=== PATIENT | male | born 1990 | race Caucasian/White ===

== ENCOUNTER 2024-03-21 17:05 | Emergency (ER) | payer BC, OTHER ==
--- OUTSIDE RECORDS SUMMARY | 2024-03-21 17:15 | XMS REPORT | Continuity of Care Document ---
Author Name Unknown Address [address] [place] [address] [facility] Address [address] [facility] 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 Role Phone Carolyne Garcia MD Primary Care Physician [phone] CAROLYNE GARCIA Attending Clinician Unavailable CAROLYNE GARCIA Attending Clinician Unavailable Carolyne Garcia MD Attending Clinician [phone] CANDIS KEARNEY Attending Clinician Unavailable Candis Kearney MD Attending Clinician [phone] Candis Kearney MD Attending Clinician [phone], Adc Surg Proc Attending Clinician Unavailab JUDITH Adam Attending Clinician Unava ilable BEN CONNOR Attending Clinician Unavailable Doctor Unassigned, Dustin Acres Attending Clinician U navailable SANDRA CABA Attending Clinician Unavailable Werner BOLANOS, October L Attending Clinician Unavailab lindy Poeb, Lane [facility] Main Attending Clinician Unavailabl e Lab, Ang - Db Attending Clinician Unavailable YULIA DO Attending Clinician Unavail able Only, Ang Db Test Attending Clinician Unavailabl Mary Schwarz Attending Clinician [phone] MARY BOWIE Attending Clinician Unavailable DAVID MILLS Attending Clinician Unavailabl rhianna Morris PT, Libra T Attending Clinician Unavail able David Mills MD Attending Clinician [phone] Velasquez FRANCHISE CONSULTANT, Betina K Attending Clinician Unavail able Christiano Mcdonough Attending Clinician Unavail able Lab, Adc Fam Pob I Attending Clinician Unavailab NICKY Moreno Attending Clinician Unavailable Kamla Ling Attending Clinician [phone] Olvin MARIE, Mena Attending Clinician [phone] MENA GUADARRAMA Attending Clinician Unavailable Nazario Carvalho MD Attending Clinician [phone] NAZARIO CARVALHO Attending Clinician Unavailab NOLAN Murrell Attending Clinician Unavailable Jean Pierre Chahal MD Attending Clinician [phone] JEAN PIERRE CHAHAL Attending Clinician Unavail able JEAN PIERRE CHAHAL Attending Clinician Unavail able KNOW, DOES_NOT Admitting Clinician Unavailable MENA GUADARRAMA Admitting Clinician Unavailable JEAN PIERRE CHAHAL Admitting Clinician Unavail able Payers Payer Name Policy Type Policy Number Effective Date Expirati on Date Source [place] [id number] 00:00:00 [employer] PREFERRED GENERIC [id number] 2020 00:00:00 [facility] [facility] [id number] 2017 00:00:00 [facility] [id number] 2018 00:00:00 Problems Condition Name Condition Details Condition Category Status Onset Date Resolution Date Last Treatment Date Treating Clinician Comments Source Contact with and (suspected ) exposure to other hazardous aromatic compounds Contact with and (suspected ) exposure to other hazardous aromatic compounds Disease Active 2022-07 2 00:00: 00 [facility] Anxiety disorder, unspecifie d Anxiety disorder, unspecifie d Disease Active 09-27 00:00: 00 [facility] Cigar smoker Cigar smoker Disease Active 09-27 00:00: 00 [facility] Health examinatio n of defined subpopulat ion Health examinatio n of defined subpopulat ion Disease Active 09-27 00:00: 00 [facility] Psychophys iologic insomnia Psychophys iologic insomnia Disease Active 09-27 00:00: 00 [facility] Chronic bilateral low back pain with sciatica Chronic bilateral low back pain with sciatica Disease Active 2020-07 0-07 00:00: 00 [facility] Decreased range of motion Decreased range of motion Disease Active 2020-07 0-07 00:00: 00 [facility] Decreased strength Decreased strength Disease Active 2020-07 0-07 00:00: 00 [facility] Other examinatio n of ears and hearing Other examinatio n of ears and hearing Disease Active 2020-07 0 00:00: 00 [facility] Migraine Migraine Disease Active 2015-07 0 00:00: 00 [facility] Adjustment disorder with anxiety Adjustment disorder with anxiety Disease Active 2014-07 00:00: 00 [facility] No known active problems No known active problems Disease [facility] Allergies, Adverse Reactions, Alerts Allergy Name Allergy Type Status Severity Reaction(s) Onset Date Inactive Date Treating Clinician Comments Source Naldecon Propensi ty to adverse reaction s Active Other - See comments 11-05 00:00: 00 Patient states "instead of making me sleep, it hypes me up". [facility] NALDECON DRUG Active Other-Cmnt 11-05 00:00: 00 [facility] Family History Family Member Diagnosis Comments Start Date Stop Date Sourc e Natural father Heart [facility] Natural mother Crohns [facility] Natural mother Ulcerative colitis [facility] Social History Social Habit Start Date Stop Date Quantity Comments Source Gender identity [facility] Alcoholic beverage intake 2024-03-12 00:00:00 2024-03-12 00:00:00 .86 /d [facility] History of Social function 2024-01-06 00:00:00 2024-01-06 00:00:00 [facility] Alcohol intake 2023-10-21 00:00:00 2023-10-21 00:00:00 .86 /d [facility] Exposure to SARS-CoV-2 (event) 2022-09-17 00:00:00 2022-09-27 15:28:00 Not sure [facility] History SDOH Alcohol Frequency 2022-09-26 00:00:00 2022-09-26 00:00:00 2 [facility] History SDOH Alcohol Std Drinks 2022-09-26 00:00:00 2022-09-26 00:00:00 1 [facility] SDOH Alcohol Binge 2022-09-26 00:00:00 2022-09-26 00:00:00 1 [facility] SDOH Social Connections Phone 2022-09-26 00:00:00 2022-09-26 00:00:00 5 [facility] SDOH Social Connections Get Together 2022-09-26 00:00:00 2022-09-26 00:00:00 5 [facility] SDOH Social Connections Congregational 2022-09-26 00:00:00 2022-09-26 00:00:00 1 [facility] SDOH Social Connections Membership 2022-09-26 00:00:00 2022-09-26 00:00:00 98 [facility] SDOH Social Connections Meetings 2022-09-26 00:00:00 2022-09-26 00:00:00 98 [facility] SDOH Social Connections Living 2022-09-26 00:00:00 2022-09-26 00:00:00 3 [facility] SDOH Physical Activity DPW 2022-09-26 00:00:00 2022-09-26 00:00:00 5 [facility] SDOH Physical Activity MPS 2022-09-26 00:00:00 2022-09-26 00:00:00 7 [facility] History SDOH Stress 2022-09-26 00:00:00 2022-09-26 00:00:00 2 [facility] SDOH Financial 2022-09-26 00:00:00 2022-09-26 00:00:00 5 [facility] SDOH Food Worry 2022-09-26 00:00:00 2022-09-26 00:00:00 1 [facility] SDOH Food Scarcity 2022-09-26 00:00:00 2022-09-26 00:00:00 1 [facility] History SDOH Transport Med 2022-09-26 00:00:00 2022-09-26 00:00:00 2 [facility] History SDOH Transport Non-Med 2022-09-26 00:00:00 2022-09-26 00:00:00 2 [facility] History SDOH Housing Unable to Pay 2022-09-26 00:00:00 2022-09-26 00:00:00 1 [facility] History SDOH Housing Places Lived 2022-09-26 00:00:00 2022-09-26 00:00:00 1 [facility] History SDOH Housing Homeless Last Year 2022-09-26 00:00:00 2022-09-26 00:00:00 2 [facility] Tobacco use and exposure 2022-04-30 00:00:00 2022-04-30 00:00:00 Smokeless tobacco non-user [facility] Alcohol Comment 2022-04-30 00:00:00 2022-04-30 00:00:00 6 beers on the weekends [facility] Tobacco Comment 2022-04-30 00:00:00 2022-04-30 00:00:00 Cigar once a year [facility] Sex assigned at 1990 00:00:00 1990 00:00:00 [facility] Smoking Status Start Date Stop Date Source Never smoked tobacco [facility] Unknown if ever smoked [facility] Medications Ordered Medication Name Filled Medication Name Start Date Stop Date Current Medication? Ordering Clinician Indication Dosage Frequency Signature (SIG) Comments Components Source phentermine 37.5 mg tablet 03-12 00:00: 00 Yes [id number] 37.5mg Take 1 tablet by mouth daily with breakfast. [facility] topiramate 50 mg tablet 03-09 00:00: 00 03-12 00:00 :00 No [id number] 50mg Take 1 tablet by mouth every morning. [facility] doxycycline hyclate 100 mg capsule 02-08 00:00: 00 02-16 04:59 :00 Yes [id number] 100mg Take 1 capsule by mouth every 12 (twelve) hours for 7 days. [facility] SUMAtriptan 50 mg tablet 17 00:00: 00 Yes [id number] 50mg Take 1 tablet by mouth as needed for Migraine (may repeat dose in 2 hours if HARTMANN persists, do not take more than 2 in a day). [facility] topiramate 50 mg tablet 17 00:00: 00 03-05 00:00 :00 No [id number] 50mg Take 1 tablet by mouth every morning. [facility] SERTraline (ZOLOFT) 100 mg tablet 01-05 00:00: 00 Yes [id number] 200mg Take 2 tablets by mouth in the morning. [facility] traZODone 50 mg tablet 01-05 00:00: 00 Yes [id number] 50mg Take 1 tablet by mouth at bedtime as needed for Insomnia. [facility] SERTraline (ZOLOFT) 100 mg tablet 4-05 00:00: 00 01-05 00:00 :00 No [id number] 150mg Take 1.5 tablets by mouth in the morning. [facility] traZODone 50 mg tablet 2-23 00:00: 00 01-05 00:00 :00 No [id number] 50mg Take 1 tablet by mouth at bedtime as needed for Insomnia. [facility] SERTraline (ZOLOFT) 100 mg tablet 2-23 00:00: 00 10-20 00:00 :00 No [id number] 100mg Take 1 tablet by mouth in the morning. [facility] SERTraline 50 mg tablet 1-22 00:00: 00 09-09 00:00 :00 No [id number] Take 1/2 tablet by mouth daily. After 7 days if tolerating medication well take 1 tablets by mouth daily. [facility] SERTraline (ZOLOFT) 25 mg tablet 1-19 00:00: 00 08-08 00:00 :00 No [id number] Take 1 tablet by mouth daily. After 7 days if tolerating medication well take 2 tablets by mouth daily. [facility] phentermine 37.5 mg tablet 2022-07 2-18 13:17: 36 03-12 00:00 :00 No 37.5mg Take 1 tablet by mouth daily with breakfast. [facility] phentermine 37.5 mg tablet 2022-07 1- 00:00: 00 06-23 00:00 :00 No [id number] 37.5mg Take 1 tablet by mouth daily with breakfast. [facility] phentermine 37.5 mg tablet 02-17 00:00: 00 Yes [id number] 37.5mg Take 1 tablet by mouth daily with breakfast. [facility] topiramate 50 mg tablet 02-15 00:00: 00 01-31 00:00 :00 No [id number] 50mg Take 1 tablet by mouth every morning. [facility] SUMAtriptan 50 mg tablet 02-15 00:00: 00 01-31 00:00 :00 No [id number] 50mg Take 1 tablet by mouth as needed for Migraine (may repeat dose in 2 hours if HARTMANN persists, do not take more than 2 in a day). [facility] liraglutide , weight loss, (SAXENDA) 3 mg/0.5 mL (18 mg/3 mL) PnIj 02-15 00:00: 00 02-17 00:00 :00 No [id number] inject 0.6 mg under the skin daily for 7 days, THEN 1.2 mg daily for 7 days, THEN 1.8 mg daily for 7 days, THEN 2.4 mg daily for 7 days, THEN 3 mg daily for 40 days. [facility] topiramate 25 mg tablet 7- 00:00: 00 02-15 00:00 :00 No [id number] 25mg Take 1 tablet by mouth in the morning. May increase to two tablets a day after 1 week [facility] topiramate 25 mg tablet 2023-0 6-19 00:00: 00 01-26 00:00 :00 No [id number] 25mg Take 1 tablet by mouth in the morning. May increase to two tablets a day after 1 week [facility] topiramate 25 mg tablet 3-13 00:00: 00 12-31 00:00 :00 No [id number] 25mg Take 1 tablet by mouth in the morning. May increase to two tablets a day after 1 week [facility] phentermine 37.5 mg capsule 2021-07 0-14 00:00: 00 09-27 00:00 :00 No [id number] 37.5mg Take 1 capsule by mouth every morning. [facility] methylPREDN ISolone acetate (DEPO-MEDRO L) injection 80 mg 08-21 15:30: 00 08-21 14:45 :00 No [id number] 80mg [facility] triamcinolo ne acetonide (KENALOG) injection 40 mg 08-21 15:30: 08-21 14:46 :00 No [id number] 40mg [facility] No known medications 08-21 09:26: 00 No [facility] gabapentin 300 mg capsule 08-21 00:00: 00 09-20 05:59 :00 No [id number] 300mg Take 1 capsule by mouth 3 (three) times daily for 30 days. [facility] cyclobenzap rine 10 mg tablet 08-21 00:00: 08-29 05:59 :00 No [id number] 10mg Take 1 tablet by mouth 3 (three) times daily for 7 days. [facility] cyclobenzap rine 5 mg tablet 11-05 00:00: 08-21 00:00 :00 No [id number] 5mg Take 1 tablet by mouth 3 (three) times daily. [facility] traMADOL (ULTRAM) 50 mg tablet 11-05 00:00: 08-21 00:00 :00 No [id number] 50mg Take 1 tablet by mouth every 6 (six) hours as needed for Pain (scale 4-6). [facility] No known medications No [facility] No known medications No [facility] No known medications No Un [facility] No known medications No [facility] No known medications No [facility] No known medications No [facility] No known medications No [facility] No known medications No Un [facility] No known medications No [facility] No known medications No Un ret[facility] it[facility] No known medications No Un ret[facility] it[facility] Immunizations Ordered Immunization Name Filled Immunization Name Date Status Comments Source SARS-COV-2 COVID-19 MODERNA 12+ YRS VACCINE 2020-09-16 00:00:00 Completed [facility] SARS-COV-2 COVID-19 MODERNA 12+ YRS VACCINE 2020-09-16 00:00:00 Completed [facility] SARS-COV-2 COVID-19 MODERNA 12+ YRS VACCINE 2020-09-16 00:00:00 Completed [facility] SARS-COV-2 COVID-19 MODERNA 12+ YRS VACCINE 2020-09-16 00:00:00 Completed [facility] SARS-COV-2 COVID-19 MODERNA 12+ YRS VACCINE 2020-09-16 00:00:00 Completed [facility] SARS-COV-2 COVID-19 MODERNA VACCINE 2020-09-16 00:00:00 Completed [facility] SARS-COV-2 COVID-19 MODERNA VACCINE 2020-09-16 00:00:00 Completed [facility] SARS-COV-2 COVID-19 MODERNA VACCINE 2020-09-16 00:00:00 Completed [facility] SARS-COV-2 COVID-19 MODERNA VACCINE 2020-09-16 00:00:00 Completed [facility] SARS-COV-2 COVID-19 MODERNA VACCINE 2020-09-16 00:00:00 Completed [facility] SARS-COV-2 COVID-19 MODERNA VACCINE 2020-09-16 00:00:00 Completed [facility] SARS-COV-2 COVID-19 MODERNA VACCINE 2020-09-16 00:00:00 Completed [facility] SARS-COV-2 COVID-19 MODERNA VACCINE 2020-09-16 00:00:00 Completed [facility] SARS-COV-2 COVID-19 MODERNA 12+ YRS VACCINE 2020-09-16 00:00:00 Completed [facility] SARS-COV-2 COVID-19 MODERNA 12+ YRS VACCINE 2020-09-16 00:00:00 Completed [facility] SARS-COV-2 COVID-19 MODERNA 12+ YRS VACCINE 2020-09-16 00:00:00 Completed [facility] SARS-COV-2 COVID-19 MODERNA 12+ YRS VACCINE 2020-09-16 00:00:00 Completed [facility] SARS-COV-2 COVID-19 MODERNA 12+ YRS VACCINE 2020-09-16 00:00:00 Completed [facility] SARS-COV-2 COVID-19 MODERNA 12+ YRS VACCINE 2020-09-16 00:00:00 Completed [facility] SARS-COV-2 COVID-19 MODERNA 12+ YRS VACCINE 2020-09-16 00:00:00 Completed [facility] SARS-COV-2 COVID-19 MODERNA 12+ YRS VACCINE 2020-09-16 00:00:00 Completed [facility] SARS-COV-2 COVID-19 MODERNA 12+ YRS VACCINE 2020-09-16 00:00:00 Completed [facility] SARS-COV-2 COVID-19 MODERNA 12+ YRS VACCINE 2020-09-16 00:00:00 Completed [facility] SARS-COV-2 COVID-19 MODERNA 12+ YRS VACCINE 2020-09-16 00:00:00 Completed [facility] SARS-COV-2 COVID-19 MODERNA 12+ YRS VACCINE 2020-09-16 00:00:00 Completed [facility] SARS-COV-2 COVID-19 MODERNA 12+ YRS VACCINE 2020-09-16 00:00:00 Completed [facility] SARS-COV-2 COVID-19 MODERNA 12+ YRS VACCINE 2020-09-16 00:00:00 Completed [facility] SARS-COV-2 COVID-19 MODERNA 12+ YRS VACCINE 2020-09-16 00:00:00 Completed [facility] SARS-COV-2 COVID-19 MODERNA 12+ YRS VACCINE 2020-09-16 00:00:00 Completed [facility] SARS-COV-2 COVID-19 MODERNA 12+ YRS VACCINE 2020-09-16 00:00:00 Completed [facility] SARS-COV-2 COVID-19 MODERNA 12+ YRS VACCINE 2020-09-16 00:00:00 Completed [facility] SARS-COV-2 COVID-19 MODERNA 12+ YRS VACCINE 2020-09-16 00:00:00 Completed [facility] SARS-COV-2 COVID-19 MODERNA 12+ YRS VACCINE 2020-09-16 00:00:00 Completed [facility] SARS-COV-2 COVID-19 MODERNA 12+ YRS VACCINE 2020-09-16 00:00:00 Completed [facility] SARS-COV-2 COVID-19 MODERNA 12+ YRS VACCINE 2020-09-16 00:00:00 Completed [facility] SARS-COV-2 COVID-19 MODERNA 12+ YRS VACCINE 2020-08-19 00:00:00 Completed [facility] SARS-COV-2 COVID-19 MODERNA 12+ YRS VACCINE 2020-08-19 00:00:00 Completed [facility] SARS-COV-2 COVID-19 MODERNA 12+ YRS VACCINE 2020-08-19 00:00:00 Completed [facility] SARS-COV-2 COVID-19 MODERNA 12+ YRS VACCINE 2020-08-19 00:00:00 Completed [facility] SARS-COV-2 COVID-19 MODERNA 12+ YRS VACCINE 2020-08-19 00:00:00 Completed [facility] SARS-COV-2 COVID-19 MODERNA VACCINE 2020-08-19 00:00:00 Completed [facility] SARS-COV-2 COVID-19 MODERNA VACCINE 2020-08-19 00:00:00 Completed [facility] SARS-COV-2 COVID-19 MODERNA VACCINE 2020-08-19 00:00:00 Completed [facility] SARS-COV-2 COVID-19 MODERNA VACCINE 2020-08-19 00:00:00 Completed [facility] SARS-COV-2 COVID-19 MODERNA VACCINE 2020-08-19 00:00:00 Completed [facility] SARS-COV-2 COVID-19 MODERNA VACCINE 2020-08-19 00:00:00 Completed [facility] SARS-COV-2 COVID-19 MODERNA VACCINE 2020-08-19 00:00:00 Completed [facility] SARS-COV-2 COVID-19 MODERNA VACCINE 2020-08-19 00:00:00 Completed [facility] SARS-COV-2 COVID-19 MODERNA 12+ YRS VACCINE 2020-08-19 00:00:00 Completed [facility] SARS-COV-2 COVID-19 MODERNA 12+ YRS VACCINE 2020-08-19 00:00:00 Completed [facility] SARS-COV-2 COVID-19 MODERNA 12+ YRS VACCINE 2020-08-19 00:00:00 Completed [facility] SARS-COV-2 COVID-19 MODERNA 12+ YRS VACCINE 2020-08-19 00:00:00 Completed [facility] SARS-COV-2 COVID-19 MODERNA 12+ YRS VACCINE 2020-08-19 00:00:00 Completed [facility] SARS-COV-2 COVID-19 MODERNA 12+ YRS VACCINE 2020-08-19 00:00:00 Completed [facility] SARS-COV-2 COVID-19 MODERNA 12+ YRS VACCINE 2020-08-19 00:00:00 Completed [facility] SARS-COV-2 COVID-19 MODERNA 12+ YRS VACCINE 2020-08-19 00:00:00 Completed [facility] SARS-COV-2 COVID-19 MODERNA 12+ YRS VACCINE 2020-08-19 00:00:00 Completed [facility] SARS-COV-2 COVID-19 MODERNA 12+ YRS VACCINE 2020-08-19 00:00:00 Completed [facility] SARS-COV-2 COVID-19 MODERNA 12+ YRS VACCINE 2020-08-19 00:00:00 Completed [facility] SARS-COV-2 COVID-19 MODERNA 12+ YRS VACCINE 2020-08-19 00:00:00 Completed [facility] SARS-COV-2 COVID-19 MODERNA 12+ YRS VACCINE 2020-08-19 00:00:00 Completed [facility] SARS-COV-2 COVID-19 MODERNA 12+ YRS VACCINE 2020-08-19 00:00:00 Completed [facility] SARS-COV-2 COVID-19 MODERNA 12+ YRS VACCINE 2020-08-19 00:00:00 Completed [facility] SARS-COV-2 COVID-19 MODERNA 12+ YRS VACCINE 2020-08-19 00:00:00 Completed [facility] SARS-COV-2 COVID-19 MODERNA 12+ YRS VACCINE 2020-08-19 00:00:00 Completed [facility] SARS-COV-2 COVID-19 MODERNA 12+ YRS VACCINE 2020-08-19 00:00:00 Completed [facility] SARS-COV-2 COVID-19 MODERNA 12+ YRS VACCINE 2020-08-19 00:00:00 Completed [facility] SARS-COV-2 COVID-19 MODERNA 12+ YRS VACCINE 2020-08-19 00:00:00 Completed [facility] SARS-COV-2 COVID-19 MODERNA 12+ YRS VACCINE 2020-08-19 00:00:00 Completed [facility] SARS-COV-2 COVID-19 MODERNA 12+ YRS VACCINE 2020-08-19 00:00:00 Completed [facility] Influenza Virus Vaccine Recomb Quad IM, Preserv and ABX Free 64 2017-04-27 00:00:00 Completed [facility] Anthrax Vaccine 2017-04-27 00:00:00 Completed [facility] Influenza Virus Vaccine Recomb Quad IM, Preserv and ABX Free 1864 2017-04-27 00:00:00 Completed [facility] Anthrax Vaccine 2017-04-27 00:00:00 Completed [facility] Influenza Virus Vaccine Recomb Quad IM, Preserv and ABX Free 18-64 2017-04-27 00:00:00 Completed [facility] Anthrax Vaccine 2017-04-27 00:00:00 Completed [facility] Influenza Virus Vaccine Recomb Quad IM, Preserv and ABX Free 18-64 YRS 2017-04-27 00:00:00 Completed [facility] Anthrax Vaccine 2017-04-27 00:00:00 Completed [facility] Influenza Virus Vaccine Recomb Quad IM, Preserv and ABX Free 18-64 YRS 2017-04-27 00:00:00 Completed [facility] Anthrax Vaccine 2017-04-27 00:00:00 Completed [facility] Influenza Virus Vaccine Recomb Quad IM, Preserv and ABX Free 18-64 YRS 2017-04-27 00:00:00 Completed [facility] Anthrax Vaccine 2017-04-27 00:00:00 Completed [facility] Influenza Virus Vaccine Recomb Quad IM, Preserv and ABX Free 18-64 YRS 2017-04-27 00:00:00 Completed [facility] Anthrax Vaccine 2017-04-27 00:00:00 Completed [facility] Influenza Virus Vaccine Recomb Quad IM, Preserv and ABX Free 18-64 YRS 2017-04-27 00:00:00 Completed [facility] Anthrax Vaccine 2017-04-27 00:00:00 Completed [facility] Influenza Virus Vaccine Recomb Quad IM, Preserv and ABX Free 18-64 YRS 2017-04-27 00:00:00 Completed [facility] Anthrax Vaccine 2017-04-27 00:00:00 Completed [facility] Influenza Virus Vaccine Recomb Quad IM, Preserv and ABX Free 18-64 YRS 2017-04-27 00:00:00 Completed [facility] Anthrax Vaccine 2017-04-27 00:00:00 Completed [facility] Influenza Virus Vaccine Recomb Quad IM, Preserv and ABX Free 18-64 YRS 2017-04-27 00:00:00 Completed [facility] Anthrax Vaccine 2017-04-27 00:00:00 Completed [facility] Influenza Virus Vaccine Recomb Quad IM, Preserv and ABX Free 18-64 YRS 2017-04-27 00:00:00 Completed [facility] Anthrax Vaccine 2017-04-27 00:00:00 Completed [facility] Influenza Virus Vaccine Recomb Quad IM, Preserv and ABX Free 18-64 YRS 2017-04-27 00:00:00 Completed [facility] Anthrax Vaccine 2017-04-27 00:00:00 Completed [facility] Influenza Virus Vaccine Recomb Quad IM, Preserv and ABX Free 18-64 YRS 2017-04-27 00:00:00 Completed [facility] Anthrax Vaccine 2017-04-27 00:00:00 Completed [facility] Influenza Virus Vaccine Recomb Quad IM, Preserv and ABX Free 18-64 YRS 2017-04-27 00:00:00 Completed [facility] Anthrax Vaccine 2017-04-27 00:00:00 Completed [facility] Influenza Virus Vaccine Recomb Quad IM, Preserv and ABX Free 18-64 YRS 2017-04-27 00:00:00 Completed [facility] Anthrax Vaccine 2017-04-27 00:00:00 Completed [facility] Influenza Virus Vaccine Recomb Quad IM, Preserv and ABX Free 18-64 YRS 2017-04-27 00:00:00 Completed [facility] Anthrax Vaccine 2017-04-27 00:00:00 Completed [facility] Influenza Virus Vaccine Recomb Quad IM, Preserv and ABX Free 18-64 YRS 2017-04-27 00:00:00 Completed [facility] Anthrax Vaccine 2017-04-27 00:00:00 Completed [facility] Influenza Virus Vaccine Recomb Quad IM, Preserv and ABX Free 18-64 YRS 2017-04-27 00:00:00 Completed [facility] Anthrax Vaccine 2017-04-27 00:00:00 Completed [facility] Influenza Virus Vaccine Recomb Quad IM, Preserv and ABX Free 18-64 YRS 2017-04-27 00:00:00 Completed [facility] Anthrax Vaccine 2017-04-27 00:00:00 Completed [facility] Typhoid Vaccine, Vi Capsular Polysaccharide, IM 2016-10-19 00:00:00 Completed [facility] Anthrax Vaccine 2016-10-19 00:00:00 Completed [facility] Typhoid Vaccine, Vi Capsular Polysaccharide, IM 2016-10-19 00:00:00 Completed [facility] Anthrax Vaccine 2016-10-19 00:00:00 Completed [facility] Typhoid Vaccine, Vi Capsular Polysaccharide, IM 2016-10-19 00:00:00 Completed [facility] Anthrax Vaccine 2016-10-19 00:00:00 Completed [facility] Typhoid Vaccine, Vi Capsular Polysaccharide, IM 2016-10-19 00:00:00 Completed [facility] Anthrax Vaccine 2016-10-19 00:00:00 Completed [facility] Typhoid Vaccine, Vi Capsular Polysaccharide, IM 2016-10-19 00:00:00 Completed [facility] Anthrax Vaccine 2016-10-19 00:00:00 Completed [facility] Typhoid Vaccine, Vi Capsular Polysaccharide, IM 2016-10-19 00:00:00 Completed [facility] Anthrax Vaccine 2016-10-19 00:00:00 Completed [facility] Typhoid Vaccine, Vi Capsular Polysaccharide, IM 2016-10-19 00:00:00 Completed [facility] Anthrax Vaccine 2016-10-19 00:00:00 Completed [facility] Typhoid Vaccine, Vi Capsular Polysaccharide, IM 2016-10-19 00:00:00 Completed [facility] Anthrax Vaccine 2016-10-19 00:00:00 Completed [facility] Typhoid Vaccine, Vi Capsular Polysaccharide, IM 2016-10-19 00:00:00 Completed [facility] Anthrax Vaccine 2016-10-19 00:00:00 Completed [facility] Typhoid Vaccine, Vi Capsular Polysaccharide, IM 2016-10-19 00:00:00 Completed [facility] Anthrax Vaccine 2016-10-19 00:00:00 Completed [facility] Typhoid Vaccine, Vi Capsular Polysaccharide, IM 2016-10-19 00:00:00 Completed [facility] Anthrax Vaccine 2016-10-19 00:00:00 Completed [facility] Typhoid Vaccine, Vi Capsular Polysaccharide, IM 2016-10-19 00:00:00 Completed [facility] Anthrax Vaccine 2016-10-19 00:00:00 Completed [facility] Typhoid Vaccine, Vi Capsular Polysaccharide, IM 2016-10-19 00:00:00 Completed [facility] Anthrax Vaccine 2016-10-19 00:00:00 Completed [facility] Typhoid Vaccine, Vi Capsular Polysaccharide, IM 2016-10-19 00:00:00 Completed [facility] Anthrax Vaccine 2016-10-19 00:00:00 Completed [facility] Typhoid Vaccine, Vi Capsular Polysaccharide, IM 2016-10-19 00:00:00 Completed [facility] Anthrax Vaccine 2016-10-19 00:00:00 Completed [facility] Typhoid Vaccine, Vi Capsular Polysaccharide, IM 2016-10-19 00:00:00 Completed [facility] Anthrax Vaccine 2016-10-19 00:00:00 Completed [facility] Typhoid Vaccine, Vi Capsular Polysaccharide, IM 2016-10-19 00:00:00 Completed [facility] Anthrax Vaccine 2016-10-19 00:00:00 Completed [facility] Typhoid Vaccine, Vi Capsular Polysaccharide, IM 2016-10-19 00:00:00 Completed [facility] Anthrax Vaccine 2016-10-19 00:00:00 Completed [facility] Typhoid Vaccine, Vi Capsular Polysaccharide, IM 2016-10-19 00:00:00 Completed [facility] Anthrax Vaccine 2016-10-19 00:00:00 Completed [facility] Typhoid Vaccine, Vi Capsular Polysaccharide, IM 2016-10-19 00:00:00 Completed [facility] Anthrax Vaccine 2016-10-19 00:00:00 Completed [facility] Flu Trivalent 2016-04-29 00:00:00 Completed [facility] Flu Trivalent 2016-04-29 00:00:00 Completed [facility] Flu Trivalent 2016-04-29 00:00:00 Completed [facility] Flu Trivalent 2016-04-29 00:00:00 Completed [facility] Flu Trivalent 2016-04-29 00:00:00 Completed [facility] Flu Trivalent 2016-04-29 00:00:00 Completed [facility] Flu Trivalent 2016-04-29 00:00:00 Completed [facility] Flu Trivalent 2016-04-29 00:00:00 Completed [facility] Flu Trivalent 2016-04-29 00:00:00 Completed [facility] Flu Trivalent 2016-04-29 00:00:00 Completed [facility] Flu Trivalent 2016-04-29 00:00:00 Completed [facility] Flu Trivalent 2016-04-29 00:00:00 Completed [facility] Flu Trivalent 2016-04-29 00:00:00 Completed [facility] Flu Trivalent 2016-04-29 00:00:00 Completed [facility] Flu Trivalent 2016-04-29 00:00:00 Completed [facility] Flu Trivalent 2016-04-29 00:00:00 Completed [facility] Flu Trivalent 2016-04-29 00:00:00 Completed [facility] Flu Trivalent 2016-04-29 00:00:00 Completed [facility] Flu Trivalent 2016-04-29 00:00:00 Completed [facility] Flu Trivalent 2016-04-29 00:00:00 Completed [facility] Influenza Virus Vaccine Quad Nasal 2015-04-07 00:00:00 Completed [facility] Influenza Virus Vaccine Quad Nasal 2015-04-07 00:00:00 Completed [facility] Influenza Virus Vaccine Quad Nasal 2015-04-07 00:00:00 Completed [facility] Influenza Virus Vaccine Quad Nasal 2015-04-07 00:00:00 Completed [facility] Influenza Virus Vaccine Quad Nasal 2015-04-07 00:00:00 Completed [facility] Influenza Virus Vaccine Quad Nasal 2015-04-07 00:00:00 Completed [facility] Influenza Virus Vaccine Quad Nasal 2015-04-07 00:00:00 Completed [facility] Influenza Virus Vaccine Quad Nasal 2015-04-07 00:00:00 Completed [facility] Influenza Virus Vaccine Quad Nasal 2015-04-07 00:00:00 Completed [facility] Influenza Virus Vaccine Quad Nasal 2015-04-07 00:00:00 Completed [facility] Influenza Virus Vaccine Quad Nasal 2015-04-07 00:00:00 Completed [facility] Influenza Virus Vaccine Quad Nasal 2015-04-07 00:00:00 Completed [facility] Influenza Virus Vaccine Quad Nasal 2015-04-07 00:00:00 Completed [facility] Influenza Virus Vaccine Quad Nasal 2015-04-07 00:00:00 Completed [facility] Influenza Virus Vaccine Quad Nasal 2015-04-07 00:00:00 Completed [facility] Influenza Virus Vaccine Quad Nasal 2015-04-07 00:00:00 Completed [facility] Influenza Virus Vaccine Quad Nasal 2015-04-07 00:00:00 Completed [facility] Influenza Virus Vaccine Quad Nasal 2015-04-07 00:00:00 Completed [facility] Influenza Virus Vaccine Quad Nasal 2015-04-07 00:00:00 Completed [facility] Influenza Virus Vaccine Quad Nasal 2015-04-07 00:00:00 Completed [facility] Anthrax Vaccine 2014-10-23 00:00:00 Completed [facility] Anthrax Vaccine 2014-10-23 00:00:00 Completed [facility] Anthrax Vaccine 2014-10-23 00:00:00 Completed [facility] Anthrax Vaccine 2014-10-23 00:00:00 Completed [facility] Anthrax Vaccine 2014-10-23 00:00:00 Completed [facility] Anthrax Vaccine 2014-10-23 00:00:00 Completed [facility] Anthrax Vaccine 2014-10-23 00:00:00 Completed [facility] Anthrax Vaccine 2014-10-23 00:00:00 Completed [facility] Anthrax Vaccine 2014-10-23 00:00:00 Completed [facility] Anthrax Vaccine 2014-10-23 00:00:00 Completed [facility] Anthrax Vaccine 2014-10-23 00:00:00 Completed [facility] Anthrax Vaccine 2014-10-23 00:00:00 Completed [facility] Anthrax Vaccine 2014-10-23 00:00:00 Completed [facility] Anthrax Vaccine 2014-10-23 00:00:00 Completed [facility] Anthrax Vaccine 2014-10-23 00:00:00 Completed [facility] Anthrax Vaccine 2014-10-23 00:00:00 Completed [facility] Anthrax Vaccine 2014-10-23 00:00:00 Completed [facility] Anthrax Vaccine 2014-10-23 00:00:00 Completed [facility] Anthrax Vaccine 2014-10-23 00:00:00 Completed [facility] Anthrax Vaccine 2014-10-23 00:00:00 Completed [facility] Influenza Virus Vaccine (3+ yrs) 2014-05-01 00:00:00 Completed [facility] Influenza Virus Vaccine (3+ yrs) 2014-05-01 00:00:00 Completed [facility] Influenza Virus Vaccine (3+ yrs) 2014-05-01 00:00:00 Completed [facility] Influenza Virus Vaccine (3+ yrs) 2014-05-01 00:00:00 Completed [facility] Influenza Virus Vaccine (3+ yrs) 2014-05-01 00:00:00 Completed [facility] Influenza Virus Vaccine (3+ yrs) 2014-05-01 00:00:00 Completed [facility] Influenza Virus Vaccine (3+ yrs) 2014-05-01 00:00:00 Completed [facility] Influenza Virus Vaccine (3+ yrs) 2014-05-01 00:00:00 Completed [facility] Influenza Virus Vaccine (3+ yrs) 2014-05-01 00:00:00 Completed [facility] Influenza Virus Vaccine (3+ yrs) 2014-05-01 00:00:00 Completed [facility] Influenza Virus Vaccine (3+ yrs) 2014-05-01 00:00:00 Completed [facility] Influenza Virus Vaccine (3+ yrs) 2014-05-01 00:00:00 Completed [facility] Influenza Virus Vaccine (3+ yrs) 2014-05-01 00:00:00 Completed [facility] Influenza Virus Vaccine (3+ yrs) 2014-05-01 00:00:00 Completed [facility] Influenza Virus Vaccine (3+ yrs) 2014-05-01 00:00:00 Completed [facility] Influenza Virus Vaccine (3+ yrs) 2014-05-01 00:00:00 Completed [facility] Influenza Virus Vaccine (3+ yrs) 2014-05-01 00:00:00 Completed [facility] Influenza Virus Vaccine (3+ yrs) 2014-05-01 00:00:00 Completed [facility] Influenza Virus Vaccine (3+ yrs) 2014-05-01 00:00:00 Completed [facility] Influenza Virus Vaccine (3+ yrs) 2014-05-01 00:00:00 Completed [facility] Anthrax Vaccine 2013-11-05 00:00:00 Completed [facility] Anthrax Vaccine 2013-11-05 00:00:00 Completed [facility] Anthrax Vaccine 2013-11-05 00:00:00 Completed [facility] Anthrax Vaccine 2013-11-05 00:00:00 Completed [facility] Anthrax Vaccine 2013-11-05 00:00:00 Completed [facility] Anthrax Vaccine 2013-11-05 00:00:00 Completed [facility] Anthrax Vaccine 2013-11-05 00:00:00 Completed [facility] Anthrax Vaccine 2013-11-05 00:00:00 Completed [facility] Anthrax Vaccine 2013-11-05 00:00:00 Completed [facility] Anthrax Vaccine 2013-11-05 00:00:00 Completed [facility] Anthrax Vaccine 2013-11-05 00:00:00 Completed [facility] Anthrax Vaccine 2013-11-05 00:00:00 Completed [facility] Anthrax Vaccine 2013-11-05 00:00:00 Completed [facility] Anthrax Vaccine 2013-11-05 00:00:00 Completed [facility] Anthrax Vaccine 2013-11-05 00:00:00 Completed [facility] Anthrax Vaccine 2013-11-05 00:00:00 Completed [facility] Anthrax Vaccine 2013-11-05 00:00:00 Completed [facility] Anthrax Vaccine 2013-11-05 00:00:00 Completed [facility] Anthrax Vaccine 2013-11-05 00:00:00 Completed [facility] Anthrax Vaccine 2013-11-05 00:00:00 Completed [facility] Typhoid Vaccine, Vi Capsular Polysaccharide, IM 2013-09-26 00:00:00 Completed [facility] Anthrax Vaccine 2013-09-26 00:00:00 Completed [facility] Smallpox 2013-09-26 00:00:00 Completed [facility] Typhoid Vaccine, Vi Capsular Polysaccharide, IM 2013-09-26 00:00:00 Completed [facility] Anthrax Vaccine 2013-09-26 00:00:00 Completed [facility] Smallpox 2013-09-26 00:00:00 Completed [facility] Typhoid Vaccine, Vi Capsular Polysaccharide, IM 2013-09-26 00:00:00 Completed [facility] Anthrax Vaccine 2013-09-26 00:00:00 Completed [facility] Smallpox 2013-09-26 00:00:00 Completed [facility] Typhoid Vaccine, Vi Capsular Polysaccharide, IM 2013-09-26 00:00:00 Completed [facility] Anthrax Vaccine 2013-09-26 00:00:00 Completed [facility] Smallpox 2013-09-26 00:00:00 Completed [facility] Typhoid Vaccine, Vi Capsular Polysaccharide, IM 2013-09-26 00:00:00 Completed [facility] Anthrax Vaccine 2013-09-26 00:00:00 Completed [facility] Smallpox 2013-09-26 00:00:00 Completed [facility] Typhoid Vaccine, Vi Capsular Polysaccharide, IM 2013-09-26 00:00:00 Completed [facility] Anthrax Vaccine 2013-09-26 00:00:00 Completed [facility] Smallpox 2013-09-26 00:00:00 Completed [facility] Typhoid Vaccine, Vi Capsular Polysaccharide, IM 2013-09-26 00:00:00 Completed [facility] Anthrax Vaccine 2013-09-26 00:00:00 Completed [facility] Smallpox 2013-09-26 00:00:00 Completed [facility] Typhoid Vaccine, Vi Capsular Polysaccharide, IM 2013-09-26 00:00:00 Completed [facility] Anthrax Vaccine 2013-09-26 00:00:00 Completed [facility] Smallpox 2013-09-26 00:00:00 Completed [facility] Typhoid Vaccine, Vi Capsular Polysaccharide, IM 2013-09-26 00:00:00 Completed [facility] Anthrax Vaccine 2013-09-26 00:00:00 Completed [facility] Smallpox 2013-09-26 00:00:00 Completed [facility] Typhoid Vaccine, Vi Capsular Polysaccharide, IM 2013-09-26 00:00:00 Completed [facility] Anthrax Vaccine 2013-09-26 00:00:00 Completed [facility] Smallpox 2013-09-26 00:00:00 Completed [facility] Typhoid Vaccine, Vi Capsular Polysaccharide, IM 2013-09-26 00:00:00 Completed [facility] Anthrax Vaccine 2013-09-26 00:00:00 Completed [facility] Smallpox 2013-09-26 00:00:00 Completed [facility] Typhoid Vaccine, Vi Capsular Polysaccharide, IM 2013-09-26 00:00:00 Completed [facility] Anthrax Vaccine 2013-09-26 00:00:00 Completed [facility] Smallpox 2013-09-26 00:00:00 Completed [facility] Typhoid Vaccine, Vi Capsular Polysaccharide, IM 2013-09-26 00:00:00 Completed [facility] Anthrax Vaccine 2013-09-26 00:00:00 Completed [facility] Smallpox 2013-09-26 00:00:00 Completed [facility] Typhoid Vaccine, Vi Capsular Polysaccharide, IM 2013-09-26 00:00:00 Completed [facility] Anthrax Vaccine 2013-09-26 00:00:00 Completed [facility] Smallpox 2013-09-26 00:00:00 Completed [facility] Typhoid Vaccine, Vi Capsular Polysaccharide, IM 2013-09-26 00:00:00 Completed [facility] Anthrax Vaccine 2013-09-26 00:00:00 Completed [facility] Smallpox 2013-09-26 00:00:00 Completed [facility] Typhoid Vaccine, Vi Capsular Polysaccharide, IM 2013-09-26 00:00:00 Completed [facility] Anthrax Vaccine 2013-09-26 00:00:00 Completed [facility] Smallpox 2013-09-26 00:00:00 Completed [facility] Typhoid Vaccine, Vi Capsular Polysaccharide, IM 2013-09-26 00:00:00 Completed [facility] Anthrax Vaccine 2013-09-26 00:00:00 Completed [facility] Smallpox 2013-09-26 00:00:00 Completed [facility] Typhoid Vaccine, Vi Capsular Polysaccharide, IM 2013-09-26 00:00:00 Completed [facility] Anthrax Vaccine 2013-09-26 00:00:00 Completed [facility] Smallpox 2013-09-26 00:00:00 Completed [facility] Typhoid Vaccine, Vi Capsular Polysaccharide, IM 2013-09-26 00:00:00 Completed [facility] Anthrax Vaccine 2013-09-26 00:00:00 Completed [facility] Smallpox 2013-09-26 00:00:00 Completed [facility] Typhoid Vaccine, Vi Capsular Polysaccharide, IM 2013-09-26 00:00:00 Completed [facility] Anthrax Vaccine 2013-09-26 00:00:00 Completed [facility] Smallpox 2013-09-26 00:00:00 Completed [facility] Twinrix (hep a/hep b) 2013-04-26 00:00:00 Completed [facility] Influenza Virus Vaccine Quad Nasal 2013-04-26 00:00:00 Completed [facility] Twinrix (hep a/hep b) 2013-04-26 00:00:00 Completed [facility] Influenza Virus Vaccine Quad Nasal 2013-04-26 00:00:00 Completed [facility] Twinrix (hep a/hep b) 2013-04-26 00:00:00 Completed [facility] Influenza Virus Vaccine Quad Nasal 2013-04-26 00:00:00 Completed [facility] Twinrix (hep a/hep b) 2013-04-26 00:00:00 Completed [facility] Influenza Virus Vaccine Quad Nasal 2013-04-26 00:00:00 Completed [facility] Twinrix (hep a/hep b) 2013-04-26 00:00:00 Completed [facility] Influenza Virus Vaccine Quad Nasal 2013-04-26 00:00:00 Completed [facility] Twinrix (hep a/hep b) 2013-04-26 00:00:00 Completed [facility] Influenza Virus Vaccine Quad Nasal 2013-04-26 00:00:00 Completed [facility] Twinrix (hep a/hep b) 2013-04-26 00:00:00 Completed [facility] Influenza Virus Vaccine Quad Nasal 2013-04-26 00:00:00 Completed [facility] Twinrix (hep a/hep b) 2013-04-26 00:00:00 Completed [facility] Influenza Virus Vaccine Quad Nasal 2013-04-26 00:00:00 Completed [facility] Twinrix (hep a/hep b) 2013-04-26 00:00:00 Completed [facility] Influenza Virus Vaccine Quad Nasal 2013-04-26 00:00:00 Completed [facility] Twinrix (hep a/hep b) 2013-04-26 00:00:00 Completed [facility] Influenza Virus Vaccine Quad Nasal 2013-04-26 00:00:00 Completed [facility] Twinrix (hep a/hep b) 2013-04-26 00:00:00 Completed [facility] Influenza Virus Vaccine Quad Nasal 2013-04-26 00:00:00 Completed [facility] Twinrix (hep a/hep b) 2013-04-26 00:00:00 Completed [facility] Influenza Virus Vaccine Quad Nasal 2013-04-26 00:00:00 Completed [facility] Twinrix (hep a/hep b) 2013-04-26 00:00:00 Completed [facility] Influenza Virus Vaccine Quad Nasal 2013-04-26 00:00:00 Completed [facility] Twinrix (hep a/hep b) 2013-04-26 00:00:00 Completed [facility] Influenza Virus Vaccine Quad Nasal 2013-04-26 00:00:00 Completed [facility] Twinrix (hep a/hep b) 2013-04-26 00:00:00 Completed [facility] Influenza Virus Vaccine Quad Nasal 2013-04-26 00:00:00 Completed [facility] Twinrix (hep a/hep b) 2013-04-26 00:00:00 Completed [facility] Influenza Virus Vaccine Quad Nasal 2013-04-26 00:00:00 Completed [facility] Twinrix (hep a/hep b) 2013-04-26 00:00:00 Completed [facility] Influenza Virus Vaccine Quad Nasal 2013-04-26 00:00:00 Completed [facility] Twinrix (hep a/hep b) 2013-04-26 00:00:00 Completed [facility] Influenza Virus Vaccine Quad Nasal 2013-04-26 00:00:00 Completed [facility] Twinrix (hep a/hep b) 2013-04-26 00:00:00 Completed [facility] Influenza Virus Vaccine Quad Nasal 2013-04-26 00:00:00 Completed [facility] Twinrix (hep a/hep b) 2013-04-26 00:00:00 Completed [facility] Influenza Virus Vaccine Quad Nasal 2013-04-26 00:00:00 Completed [facility] PPD (TB) 2013-04-10 00:00:00 Completed [facility] PPD (TB) 2013-04-10 00:00:00 Completed [facility] PPD (TB) 2013-04-10 00:00:00 Completed [facility] PPD (TB) 2013-04-10 00:00:00 Completed [facility] PPD (TB) 2013-04-10 00:00:00 Completed [facility] PPD (TB) 2013-04-10 00:00:00 Completed [facility] PPD (TB) 2013-04-10 00:00:00 Completed [facility] PPD (TB) 2013-04-10 00:00:00 Completed [facility] PPD (TB) 2013-04-10 00:00:00 Completed [facility] PPD (TB) 2013-04-10 00:00:00 Completed [facility] PPD (TB) 2013-04-10 00:00:00 Completed [facility] PPD (TB) 2013-04-10 00:00:00 Completed [facility] PPD (TB) 2013-04-10 00:00:00 Completed [facility] PPD (TB) 2013-04-10 00:00:00 Completed [facility] PPD (TB) 2013-04-10 00:00:00 Completed [facility] PPD (TB) 2013-04-10 00:00:00 Completed [facility] PPD (TB) 2013-04-10 00:00:00 Completed [facility] PPD (TB) 2013-04-10 00:00:00 Completed [facility] PPD (TB) 2013-04-10 00:00:00 Completed [facility] PPD (TB) 2013-04-10 00:00:00 Completed [facility] DTAP 2012-12-28 00:00:00 Completed [facility] DTAP 2012-12-28 00:00:00 Completed [facility] DTAP 2012-12-28 00:00:00 Completed [facility] DTAP 2012-12-28 00:00:00 Completed [facility] DTAP 2012-12-28 00:00:00 Completed [facility] DTAP 2012-12-28 00:00:00 Completed [facility] DTAP 2012-12-28 00:00:00 Completed [facility] DTAP 2012-12-28 00:00:00 Completed [facility] DTAP 2012-12-28 00:00:00 Completed [facility] DTAP 2012-12-28 00:00:00 Completed [facility] DTAP 2012-12-28 00:00:00 Completed [facility] DTAP 2012-12-28 00:00:00 Completed [facility] DTAP 2012-12-28 00:00:00 Completed [facility] DTAP 2012-12-28 00:00:00 Completed [facility] DTAP 2012-12-28 00:00:00 Completed [facility] DTAP 2012-12-28 00:00:00 Completed [facility] DTAP 2012-12-28 00:00:00 Completed [facility] DTAP 2012-12-28 00:00:00 Completed [facility] DTAP 2012-12-28 00:00:00 Completed [facility] DTAP 2012-12-28 00:00:00 Completed [facility] DTAP 2012-12-28 00:00:00 Completed [facility] DTAP 2012-12-28 00:00:00 Completed [facility] DTAP 2012-12-28 00:00:00 Completed [facility] DTAP 2012-12-28 00:00:00 Completed [facility] DTAP 2012-12-28 00:00:00 Completed [facility] DTAP 2012-12-28 00:00:00 Completed [facility] DTAP 2012-12-28 00:00:00 Completed [facility] Twinrix (hep a/hep b) 2012-11-14 00:00:00 Completed [facility] Twinrix (hep a/hep b) 2012-11-14 00:00:00 Completed [facility] Twinrix (hep a/hep b) 2012-11-14 00:00:00 Completed [facility] Twinrix (hep a/hep b) 2012-11-14 00:00:00 Completed [facility] Twinrix (hep a/hep b) 2012-11-14 00:00:00 Completed [facility] Twinrix (hep a/hep b) 2012-11-14 00:00:00 Completed [facility] Twinrix (hep a/hep b) 2012-11-14 00:00:00 Completed [facility] Twinrix (hep a/hep b) 2012-11-14 00:00:00 Completed [facility] Twinrix (hep a/hep b) 2012-11-14 00:00:00 Completed [facility] Twinrix (hep a/hep b) 2012-11-14 00:00:00 Completed [facility] Twinrix (hep a/hep b) 2012-11-14 00:00:00 Completed [facility] Twinrix (hep a/hep b) 2012-11-14 00:00:00 Completed [facility] Twinrix (hep a/hep b) 2012-11-14 00:00:00 Completed [facility] Twinrix (hep a/hep b) 2012-11-14 00:00:00 Completed [facility] Twinrix (hep a/hep b) 2012-11-14 00:00:00 Completed [facility] Twinrix (hep a/hep b) 2012-11-14 00:00:00 Completed [facility] Twinrix (hep a/hep b) 2012-11-14 00:00:00 Completed [facility] Twinrix (hep a/hep b) 2012-11-14 00:00:00 Completed [facility] Twinrix (hep a/hep b) 2012-11-14 00:00:00 Completed [facility] Twinrix (hep a/hep b) 2012-11-14 00:00:00 Completed [facility] Adenovirus, NOS 2012-09-13 00:00:00 Completed [facility] Twinrix (hep a/hep b) 2012-09-13 00:00:00 Completed [facility] Influenza Virus Vaccine Nasal 2012-09-13 00:00:00 Completed [facility] Meningococcal Polysaccharide (groups A, C, Y and W-135) conjugate vaccine (MCV4P) 2012-09-13 00:00:00 Completed [facility] IPV 2012-09-13 00:00:00 Completed [facility] TDAP 2012-09-13 00:00:00 Completed [facility] Adenovirus, NOS 2012-09-13 00:00:00 Completed [facility] Twinrix (hep a/hep b) 2012-09-13 00:00:00 Completed [facility] Influenza Virus Vaccine Nasal 2012-09-13 00:00:00 Completed [facility] Meningococcal Polysaccharide (groups A, C, Y and W-135) conjugate vaccine (MCV4P) 2012-09-13 00:00:00 Completed [facility] IPV 2012-09-13 00:00:00 Completed [facility] TDAP 2012-09-13 00:00:00 Completed [facility] Adenovirus, NOS 2012-09-13 00:00:00 Completed [facility] Twinrix (hep a/hep b) 2012-09-13 00:00:00 Completed [facility] Influenza Virus Vaccine Nasal 2012-09-13 00:00:00 Completed [facility] Meningococcal Polysaccharide (groups A, C, Y and W-135) conjugate vaccine (MCV4P) 2012-09-13 00:00:00 Completed [facility] IPV 2012-09-13 00:00:00 Completed [facility] TDAP 2012-09-13 00:00:00 Completed [facility] Adenovirus, NOS 2012-09-13 00:00:00 Completed [facility] Twinrix (hep a/hep b) 2012-09-13 00:00:00 Completed [facility] Influenza Virus Vaccine Nasal 2012-09-13 00:00:00 Completed [facility] Meningococcal Polysaccharide (groups A, C, Y and W-135) conjugate vaccine (MCV4P) 2012-09-13 00:00:00 Completed [facility] IPV 2012-09-13 00:00:00 Completed [facility] TDAP 2012-09-13 00:00:00 Completed [facility] Adenovirus, NOS 2012-09-13 00:00:00 Completed [facility] Twinrix (hep a/hep b) 2012-09-13 00:00:00 Completed [facility] Influenza Virus Vaccine Nasal 2012-09-13 00:00:00 Completed [facility] Meningococcal Polysaccharide (groups A, C, Y and W-135) conjugate vaccine (MCV4P) 2012-09-13 00:00:00 Completed [facility] IPV 2012-09-13 00:00:00 Completed [facility] TDAP 2012-09-13 00:00:00 Completed [facility] Adenovirus, NOS 2012-09-13 00:00:00 Completed [facility] Twinrix (hep a/hep b) 2012-09-13 00:00:00 Completed [facility] Influenza Virus Vaccine Nasal 2012-09-13 00:00:00 Completed [facility] Meningococcal Polysaccharide (groups A, C, Y and W-135) conjugate vaccine (MCV4P) 2012-09-13 00:00:00 Completed [facility] IPV 2012-09-13 00:00:00 Completed [facility] TDAP 2012-09-13 00:00:00 Completed [facility] Adenovirus, NOS 2012-09-13 00:00:00 Completed [facility] Twinrix (hep a/hep b) 2012-09-13 00:00:00 Completed [facility] Influenza Virus Vaccine Nasal 2012-09-13 00:00:00 Completed [facility] Meningococcal Polysaccharide (groups A, C, Y and W-135) conjugate vaccine (MCV4P) 2012-09-13 00:00:00 Completed [facility] IPV 2012-09-13 00:00:00 Completed [facility] TDAP 2012-09-13 00:00:00 Completed [facility] Adenovirus, NOS 2012-09-13 00:00:00 Completed [facility] Twinrix (hep a/hep b) 2012-09-13 00:00:00 Completed [facility] Influenza Virus Vaccine Nasal 2012-09-13 00:00:00 Completed [facility] Meningococcal Polysaccharide (groups A, C, Y and W-135) conjugate vaccine (MCV4P) 2012-09-13 00:00:00 Completed [facility] IPV 2012-09-13 00:00:00 Completed [facility] TDAP 2012-09-13 00:00:00 Completed [facility] Adenovirus, NOS 2012-09-13 00:00:00 Completed [facility] Twinrix (hep a/hep b) 2012-09-13 00:00:00 Completed [facility] Influenza Virus Vaccine Nasal 2012-09-13 00:00:00 Completed [facility] Meningococcal Polysaccharide (groups A, C, Y and W-135) conjugate vaccine (MCV4P) 2012-09-13 00:00:00 Completed [facility] IPV 2012-09-13 00:00:00 Completed [facility] TDAP 2012-09-13 00:00:00 Completed [facility] Adenovirus, NOS 2012-09-13 00:00:00 Completed [facility] Twinrix (hep a/hep b) 2012-09-13 00:00:00 Completed [facility] Influenza Virus Vaccine Nasal 2012-09-13 00:00:00 Completed [facility] Meningococcal Polysaccharide (groups A, C, Y and W-135) conjugate vaccine (MCV4P) 2012-09-13 00:00:00 Completed [facility] IPV 2012-09-13 00:00:00 Completed [facility] TDAP 2012-09-13 00:00:00 Completed [facility] Adenovirus, NOS 2012-09-13 00:00:00 Completed [facility] Twinrix (hep a/hep b) 2012-09-13 00:00:00 Completed [facility] Influenza Virus Vaccine Nasal 2012-09-13 00:00:00 Completed [facility] Meningococcal Polysaccharide (groups A, C, Y and W-135) conjugate vaccine (MCV4P) 2012-09-13 00:00:00 Completed [facility] IPV 2012-09-13 00:00:00 Completed [facility] TDAP 2012-09-13 00:00:00 Completed [facility] Adenovirus, NOS 2012-09-13 00:00:00 Completed [facility] Twinrix (hep a/hep b) 2012-09-13 00:00:00 Completed [facility] Influenza Virus Vaccine Nasal 2012-09-13 00:00:00 Completed [facility] Meningococcal Polysaccharide (groups A, C, Y and W-135) conjugate vaccine (MCV4P) 2012-09-13 00:00:00 Completed [facility] IPV 2012-09-13 00:00:00 Completed [facility] TDAP 2012-09-13 00:00:00 Completed [facility] Adenovirus, NOS 2012-09-13 00:00:00 Completed [facility] Twinrix (hep a/hep b) 2012-09-13 00:00:00 Completed [facility] Influenza Virus Vaccine Nasal 2012-09-13 00:00:00 Completed [facility] Meningococcal Polysaccharide (groups A, C, Y and W-135) conjugate vaccine (MCV4P) 2012-09-13 00:00:00 Completed [facility] IPV 2012-09-13 00:00:00 Completed [facility] TDAP 2012-09-13 00:00:00 Completed [facility] Adenovirus, NOS 2012-09-13 00:00:00 Completed [facility] Twinrix (hep a/hep b) 2012-09-13 00:00:00 Completed [facility] Influenza Virus Vaccine Nasal 2012-09-13 00:00:00 Completed [facility] Meningococcal Polysaccharide (groups A, C, Y and W-135) conjugate vaccine (MCV4P) 2012-09-13 00:00:00 Completed [facility] IPV 2012-09-13 00:00:00 Completed [facility] TDAP 2012-09-13 00:00:00 Completed [facility] Adenovirus, NOS 2012-09-13 00:00:00 Completed [facility] Twinrix (hep a/hep b) 2012-09-13 00:00:00 Completed [facility] Influenza Virus Vaccine Nasal 2012-09-13 00:00:00 Completed [facility] Meningococcal Polysaccharide (groups A, C, Y and W-135) conjugate vaccine (MCV4P) 2012-09-13 00:00:00 Completed [facility] IPV 2012-09-13 00:00:00 Completed [facility] TDAP 2012-09-13 00:00:00 Completed [facility] Adenovirus, NOS 2012-09-13 00:00:00 Completed [facility] Twinrix (hep a/hep b) 2012-09-13 00:00:00 Completed [facility] Influenza Virus Vaccine Nasal 2012-09-13 00:00:00 Completed [facility] Meningococcal Polysaccharide (groups A, C, Y and W-135) conjugate vaccine (MCV4P) 2012-09-13 00:00:00 Completed [facility] IPV 2012-09-13 00:00:00 Completed [facility] TDAP 2012-09-13 00:00:00 Completed [facility] Adenovirus, NOS 2012-09-13 00:00:00 Completed [facility] Twinrix (hep a/hep b) 2012-09-13 00:00:00 Completed [facility] Influenza Virus Vaccine Nasal 2012-09-13 00:00:00 Completed [facility] Meningococcal Polysaccharide (groups A, C, Y and W-135) conjugate vaccine (MCV4P) 2012-09-13 00:00:00 Completed [facility] IPV 2012-09-13 00:00:00 Completed [facility] TDAP 2012-09-13 00:00:00 Completed [facility] Adenovirus, NOS 2012-09-13 00:00:00 Completed [facility] Twinrix (hep a/hep b) 2012-09-13 00:00:00 Completed [facility] Influenza Virus Vaccine Nasal 2012-09-13 00:00:00 Completed [facility] Meningococcal Polysaccharide (groups A, C, Y and W-135) conjugate vaccine (MCV4P) 2012-09-13 00:00:00 Completed [facility] IPV 2012-09-13 00:00:00 Completed [facility] TDAP 2012-09-13 00:00:00 Completed [facility] Adenovirus, NOS 2012-09-13 00:00:00 Completed [facility] Twinrix (hep a/hep b) 2012-09-13 00:00:00 Completed [facility] Influenza Virus Vaccine Nasal 2012-09-13 00:00:00 Completed [facility] Meningococcal Polysaccharide (groups A, C, Y and W-135) conjugate vaccine (MCV4P) 2012-09-13 00:00:00 Completed [facility] IPV 2012-09-13 00:00:00 Completed [facility] TDAP 2012-09-13 00:00:00 Completed [facility] Adenovirus, NOS 2012-09-13 00:00:00 Completed [facility] Twinrix (hep a/hep b) 2012-09-13 00:00:00 Completed [facility] Influenza Virus Vaccine Nasal 2012-09-13 00:00:00 Completed [facility] Meningococcal Polysaccharide (groups A, C, Y and W-135) conjugate vaccine (MCV4P) 2012-09-13 00:00:00 Completed [facility] IPV 2012-09-13 00:00:00 Completed [facility] TDAP 2012-09-13 00:00:00 Completed [facility] SARS-COV-2 COVID-19 MODERNA 12+ YRS VACCINE Unknown Completed [facility] SARS-COV-2 COVID-19 MODERNA 12+ YRS VACCINE Unknown Completed [facility] DTAP Unknown Completed [facility] Typhoid Vaccine, Vi Capsular Polysaccharide, IM Unknown Completed [facility] Typhoid Vaccine, Vi Capsular Polysaccharide, IM Unknown Completed [facility] Influenza Virus Vaccine Recomb Quad IM, Preserv and ABX Free 18-64 YRS Unknown Completed [facility] Adenovirus, NOS Unknown Completed [facility] Anthrax Vaccine Unknown Completed [facility] Anthrax Vaccine Unknown Completed [facility] Anthrax Vaccine Unknown Completed [facility] Anthrax Vaccine Unknown Completed [facility] Anthrax Vaccine Unknown Completed [facility] Twinrix (hep a/hep b) Unknown Completed [facility] Twinrix (hep a/hep b) Unknown Completed [facility] Twinrix (hep a/hep b) Unknown Completed [facility] Influenza Virus Vaccine Nasal Unknown Completed [facility] Influenza Virus Vaccine Quad Nasal (Flumist) Unknown Completed [facility] Influenza Virus Vaccine Quad Nasal (Flumist) Unknown Completed [facility] Flu Trivalent Unknown [facility] Influenza Virus Vaccine (3+ yrs) Unknown Completed [facility] Meningococcal Polysaccharide (groups A, C, Y and W-135) conjugate vaccine (MCV4P) Unknown Completed [facility] IPV Unknown Completed [facility] TDAP Unknown Completed [facility] PPD (TB) Unknown Completed [facility] Smallpox Unknown Completed [facility] SARS-COV-2 COVID-19 MODERNA 12+ YRS VACCINE Unknown Completed [facility] SARS-COV-2 COVID-19 MODERNA 12+ YRS VACCINE Unknown Completed [facility] DTAP Unknown Completed [facility] Typhoid Vaccine, Vi Capsular Polysaccharide, IM Unknown Completed [facility] Typhoid Vaccine, Vi Capsular Polysaccharide, IM Unknown Completed [facility] Influenza Virus Vaccine Recomb Quad IM, Preserv and ABX Free 18-64 YRS Unknown Completed [facility] Adenovirus, NOS Unknown [facility]ine [facility] Com[facility] Anthrax Vaccine Unknown Completed [facility] Twinrix (hep a/hep b) Unknown Completed [facility] Twinrix (hep a/hep b) Unknown Completed [facility] Twinrix (hep a/hep b) Unknown Completed [facility] Influenza Virus Vaccine Nasal Unknown Completed [facility] Influenza Virus Vaccine Quad Nasal (Flumist) Unknown Completed [facility] Influenza Virus Vaccine Quad Nasal (Flumist) Unknown Completed [facility] Flu Trivalent Unknown Completed [facility] Influenza Virus Vaccine (3+ yrs) Unknown Completed [facility] Meningococcal Polysaccharide (groups A, C, Y and W-135) conjugate vaccine (MCV4P) Unknown Completed [facility] IPV Unknown Completed [facility] TDAP Unknown Completed [facility] PPD (TB) Unknown Completed [facility] Smallpox Unknown Completed [facility] SARS-COV-2 COVID-19 MODERNA 12+ YRS VACCINE Unknown Completed [facility] SARS-COV-2 COVID-19 MODERNA 12+ YRS VACCINE Unknown Completed [facility] DTAP Unknown Completed [facility] Typhoid Vaccine, Vi Capsular Polysaccharide, IM Unknown Completed [facility] Typhoid Vaccine, Vi Capsular Polysaccharide, IM Unknown Completed [facility] Influenza Virus Vaccine Recomb Quad IM, Preserv and ABX Free 18-64 YRS Unknown [facility] [facility] Adenovirus, NOS Unknown [facility] Vaccine Unknown Com[facility] Anthrax Vacc[facility] Unknown Completed [facility] Anthrax Vaccine Unknown Completed [facility] Anthrax Vaccine Unknown Completed [facility] Twinrix (hep a/hep b) Unknown Completed [facility] Twinrix (hep a/hep b) Unknown Completed [facility] Twinrix (hep a/hep b) Unknown Completed [facility] Influenza Virus Vaccine Nasal Unknown Completed [facility] Influenza Virus Vaccine Quad Nasal (Flumist) Unknown Completed [facility] Influenza Virus Vaccine Quad Nasal (Flumist) Unknown Completed [facility] Flu Trivalent Unknown Completed [facility] Influenza Virus Vaccine (3+ yrs) Unknown Completed [facility] Meningococcal Polysaccharide (groups A, C, Y and W-135) conjugate vaccine (MCV4P) Unknown Completed [facility] IPV Unknown Completed [facility] TDAP Unknown Completed [facility] PPD (TB) Unknown Completed [facility] Smallpox Unknown Completed [facility] SARS-COV-2 COVID-19 MODERNA 12+ YRS VACCINE Unknown Completed [facility] SARS-COV-2 COVID-19 MODERNA 12+ YRS VACCINE Unknown Completed [facility] DTAP Unknown Completed [facility] Typhoid Vaccine, Vi Capsular Polysaccharide, IM Unknown Completed [facility] Typhoid Vaccine, Vi Capsular Polysaccharide, IM Unknown Completed [facility] Influenza Virus Vaccine Recomb Quad IM, Preserv and ABX Free 18-64 YRS Unknown Completed [facility] Adenovirus, NOS Unknown [facility] Com[facility] Anthrax Vacc[facility] Unknown [facility] Vaccine Unknown Completed [facility] Anthrax Vacc[facility] Unknown [facility]ine [facility] Completed [facility] Twinrix (hep a/hep b) Unknown Completed [facility] Twinrix (hep a/hep b) Unknown Completed [facility] Twinrix (hep a/hep b) Unknown Completed [facility] Influenza Virus Vaccine Nasal Unknown Completed [facility] Influenza Virus Vaccine Quad Nasal (Flumist) Unknown Completed [facility] Influenza Virus Vaccine Quad Nasal (Flumist) Unknown Completed [facility]alent [facility]ine (3+ yrs) Unknown Completed [facility] Meningococcal Polysaccharide (groups A, C, Y and W-135) conjugate vaccine (MCV4P) Unknown Completed [facility] IPV Unknown Completed [facility] TDAP Unknown Completed [facility] PPD (TB) Unknown Completed [facility] Smallpox Unknown Completed [facility] SARS-COV-2 COVID-19 MODERNA 12+ YRS VACCINE Unknown Completed [facility] SARS-COV-2 COVID-19 MODERNA 12+ YRS VACCINE Unknown Completed [facility] DTAP Unknown Completed [facility] Typhoid Vaccine, Vi Capsular Polysaccharide, IM Unknown Completed [facility] Typhoid Vaccine, Vi Capsular Polysaccharide, IM Unknown Completed [facility] Influenza Virus Vaccine Recomb Quad IM, Preserv and ABX Free 18-64 YRS Unknown Completed [facility] Adenovirus, NOS Unknown Completed [facility] Anthrax Vaccine Unknown Completed [facility] Anthrax Vaccine Unknown Completed [facility] Anthrax Vaccine Unknown Completed [facility] Anthrax Vaccine Unknown Completed [facility] Anthrax Vaccine Unknown Completed [facility] Twinrix (hep a/hep b) Unknown Completed [facility] Twinrix (hep a/hep b) Unknown Completed [facility] Twinrix (hep a/hep b) Unknown Completed [facility] Influenza Virus Vaccine Nasal Unknown Completed [facility] Influenza Virus Vaccine Quad Nasal (Flumist) Unknown Completed [facility] Influenza Virus Vaccine Quad Nasal (Flumist) Unknown Completed [facility] Flu Trivalent [facility] Vaccine (3+ yrs) Unknown Completed [facility] Meningococcal Polysaccharide (groups A, C, Y and W-135) conjugate vaccine (MCV4P) Unknown Completed [facility] IPV Unknown Completed [facility] TDAP Unknown Completed [facility] PPD (TB) Unknown Completed [facility] Smallpox Unknown Completed [facility] SARS-COV-2 COVID-19 MODERNA 12+ YRS VACCINE Unknown Completed [facility] SARS-COV-2 COVID-19 MODERNA 12+ YRS VACCINE Unknown Completed [facility] DTAP Unknown Completed [facility] Typhoid Vaccine, Vi Capsular Polysaccharide, IM Unknown Completed [facility] Typhoid Vaccine, Vi Capsular Polysaccharide, IM Unknown Completed [facility] Influenza Virus Vaccine Recomb Quad IM, Preserv and ABX Free 18-64 YRS Unknown Completed [facility] Adenovirus, NOS Unknown Completed [facility] Anthrax Vaccine Unknown Completed [facility] Anthrax Vaccine Unknown Completed [facility] Anthrax Vaccine Unknown Completed [facility] Anthrax Vaccine Unknown Completed [facility] Anthrax Vaccine Unknown Completed [facility] Twinrix (hep a/hep b) Unknown Completed [facility] Twinrix (hep a/hep b) Unknown Completed [facility] Twinrix (hep a/hep b) Unknown Completed [facility] Influenza Virus Vaccine Nasal Unknown Completed [facility] Influenza Virus Vaccine Quad Nasal (Flumist) Unknown Completed [facility] Influenza Virus Vaccine Quad Nasal (Flumist) Unknown Completed [facility] Flu Trivalent Unknown [facility] Vaccine (3+ yrs) Unknown Completed [facility] Meningococcal Polysaccharide (groups A, C, Y and W-135) conjugate vaccine (MCV4P) Unknown Completed [facility] IPV Unknown Completed [facility] TDAP Unknown Completed [facility] PPD (TB) Unknown Completed [facility] Smallpox Unknown Completed [facility] SARS-COV-2 COVID-19 MODERNA 12+ YRS VACCINE Unknown Completed [facility] SARS-COV-2 COVID-19 MODERNA 12+ YRS VACCINE Unknown Completed [facility] DTAP Unknown Completed [facility] Typhoid Vaccine, Vi Capsular Polysaccharide, IM Unknown Completed [facility] Typhoid Vaccine, Vi Capsular Polysaccharide, IM Unknown Completed [facility] Influenza Virus Vaccine Recomb Quad IM, Preserv and ABX Free 18-64 YRS Unknown Completed [facility] Adenovirus, NOS Unknown Completed [facility] Anthrax Vaccine Unknown Completed [facility] Anthrax Vaccine Unknown Completed [facility] Anthrax Vaccine Unknown Completed [facility] Anthrax Vaccine Unknown Completed [facility] Anthrax Vaccine Unknown Completed [facility] Twinrix (hep a/hep b) Unknown Completed [facility] Twinrix (hep a/hep b) Unknown Completed [facility] Twinrix (hep a/hep b) Unknown Completed [facility] Influenza Virus Vaccine Nasal Unknown Completed [facility] Influenza Virus Vaccine Quad Nasal (Flumist) Unknown Completed [facility] Influenza Virus Vaccine Quad Nasal (Flumist) Unknown Completed [facility] Flu Trivalent Unknown [facility] Vaccine (3+ yrs) Unknown Completed [facility] Meningococcal Polysaccharide (groups A, C, Y and W-135) conjugate vaccine (MCV4P) Unknown Completed [facility] IPV Unknown Completed [facility] TDAP Unknown Completed [facility] PPD (TB) Unknown Completed [facility] Smallpox Unknown Completed [facility] Varicella (varivax)(chicken pox) Unknown Completed [facility] SARS-COV-2 COVID-19 MODERNA 12+ YRS VACCINE Unknown Completed [facility] SARS-COV-2 COVID-19 MODERNA 12+ YRS VACCINE Unknown Completed [facility] DTAP Unknown Completed [facility] Typhoid Vaccine, Vi Capsular Polysaccharide, IM Unknown Completed [facility] Typhoid Vaccine, Vi Capsular Polysaccharide, IM Unknown Completed [facility] Influenza Virus Vaccine Recomb Quad IM, Preserv and ABX Free 18-64 YRS Unknown Completed [facility] Adenovirus, NOS Unknown Completed [facility] Anthrax Vaccine Unknown Completed [facility] Anthrax Vaccine Unknown [facility]ine [facility] Vacc[facility]rax Vaccine Unknown Completed [facility] Twinrix (hep a/hep b) Unknown Completed [facility] Twinrix (hep a/hep b) Unknown Completed [facility] Twinrix (hep a/hep b) Unknown Completed [facility] Influenza Virus Vaccine Nasal Unknown Completed [facility] Influenza Virus Vaccine Quad Nasal (Flumist) Unknown Completed [facility] Influenza Virus Vaccine Quad Nasal (Flumist) Unknown Completed [facility] Flu [facility]rivalent [facility]ine (3+ yrs) Unknown Completed [facility] Meningococcal Polysaccharide (groups A, C, Y and W-135) conjugate vaccine (MCV4P) Unknown Completed [facility] IPV Unknown Completed [facility] TDAP Unknown Completed [facility] PPD (TB) Unknown Completed [facility] Smallpox Unknown Completed [facility] Varicella (varivax)(chicken pox) Unknown Completed [facility] SARS-COV-2 COVID-19 MODERNA 12+ YRS VACCINE Unknown Completed [facility] SARS-COV-2 COVID-19 MODERNA 12+ YRS VACCINE Unknown Completed [facility] DTAP Unknown Completed [facility] Typhoid Vaccine, Vi Capsular Polysaccharide, IM Unknown Completed [facility] Typhoid Vaccine, Vi Capsular Polysaccharide, IM Unknown Completed [facility] Influenza Virus Vaccine Recomb Quad IM, Preserv and ABX Free 18-64 YRS Unknown Completed [facility] Adenovirus, NOS Unknown Completed [facility] Anthrax Vaccine Unknown [facility]ine [facility] Vacc[facility] Unknown Completed [facility] Anthrax Vaccine Unknown Completed [facility] Twinrix (hep a/hep b) Unknown Completed [facility] Twinrix (hep a/hep b) Unknown Completed [facility] Twinrix (hep a/hep b) Unknown Completed [facility] Influenza Virus Vaccine Nasal Unknown Completed [facility] Influenza Virus Vaccine Quad Nasal (Flumist) Unknown Completed [facility] Influenza Virus Vaccine Quad Nasal (Flumist) Unknown Completed [facility] Flu [facility]rivalent [facility] Vaccine (3+ yrs) Unknown Completed [facility] Meningococcal Polysaccharide (groups A, C, Y and W-135) conjugate vaccine (MCV4P) Unknown Completed [facility] IPV Unknown Completed [facility] TDAP Unknown Completed [facility] PPD (TB) Unknown Completed [facility] Smallpox Unknown Completed [facility] Varicella (varivax)(chicken pox) Unknown Completed [facility] SARS-COV-2 COVID-19 MODERNA 12+ YRS VACCINE Unknown Completed [facility] SARS-COV-2 COVID-19 MODERNA 12+ YRS VACCINE Unknown Completed [facility] DTAP Unknown Completed [facility] Typhoid Vaccine, Vi Capsular Polysaccharide, IM Unknown Completed [facility] Typhoid Vaccine, Vi Capsular Polysaccharide, IM Unknown Completed [facility] Influenza Virus Vaccine Recomb Quad IM, Preserv and ABX Free 18-64 YRS Unknown Completed [facility] Adenovirus, NOS Unknown Completed [facility] Anthrax Vaccine Unknown Completed [facility] Anthrax Vaccine Unknown Completed [facility] Anthrax Vaccine Unknown Completed [facility] Anthrax Vaccine Unknown Completed [facility] Anthrax Vaccine Unknown Completed [facility] Twinrix (hep a/hep b) Unknown Completed [facility] Twinrix (hep a/hep b) Unknown Completed [facility] Twinrix (hep a/hep b) Unknown Completed [facility] Influenza Virus Vaccine Nasal Unknown Completed [facility] Influenza Virus Vaccine Quad Nasal (Flumist) Unknown Completed [facility] Influenza Virus Vaccine Quad Nasal (Flumist) Unknown Completed [facility] Flu [facility]rivalent [facility] Vaccine (3+ yrs) Unknown Completed [facility] Meningococcal Polysaccharide (groups A, C, Y and W-135) conjugate vaccine (MCV4P) Unknown Completed [facility] IPV Unknown Completed [facility] TDAP Unknown Completed [facility] PPD (TB) Unknown Completed [facility] Smallpox Unknown Completed [facility] Varicella (varivax)(chicken pox) Unknown Completed [facility] SARS-COV-2 COVID-19 MODERNA 12+ YRS VACCINE Unknown Completed [facility] SARS-COV-2 COVID-19 MODERNA 12+ YRS VACCINE Unknown Completed [facility] DTAP Unknown Completed [facility] Typhoid Vaccine, Vi Capsular Polysaccharide, IM Unknown Completed [facility] Typhoid Vaccine, Vi Capsular Polysaccharide, IM Unknown Completed [facility] Influenza Virus Vaccine Recomb Quad IM, Preserv and ABX Free 18-64 YRS Unknown Completed [facility] Adenovirus, NOS Unknown Completed [facility] Anthrax Vaccine Unknown Completed [facility] Anthrax Vaccine Unknown Completed [facility] Anthrax Vaccine Unknown Completed [facility] Anthrax Vaccine Unknown Completed [facility] Anthrax Vaccine Unknown Completed [facility] Twinrix (hep a/hep b) Unknown Completed [facility] Twinrix (hep a/hep b) Unknown Completed [facility] Twinrix (hep a/hep b) Unknown Completed [facility] Influenza Virus Vaccine Nasal Unknown Completed [facility] Influenza Virus Vaccine Quad Nasal (Flumist) Unknown Completed [facility] Influenza Virus Vaccine Quad Nasal (Flumist) Unknown Completed [facility] Flu Trivalent Unknown [facility] Vaccine (3+ yrs) Unknown Completed [facility] Meningococcal Polysaccharide (groups A, C, Y and W-135) conjugate vaccine (MCV4P) Unknown Completed [facility] IPV Unknown Completed [facility] TDAP Unknown Completed [facility] PPD (TB) Unknown Completed [facility] Smallpox Unknown Completed [facility] Varicella (varivax)(chicken pox) Unknown Completed [facility] SARS-COV-2 COVID-19 MODERNA 12+ YRS VACCINE Unknown Completed [facility] SARS-COV-2 COVID-19 MODERNA 12+ YRS VACCINE Unknown Completed [facility] DTAP Unknown Completed [facility] Typhoid Vaccine, Vi Capsular Polysaccharide, IM Unknown Completed [facility] Typhoid Vaccine, Vi Capsular Polysaccharide, IM Unknown Completed [facility] Influenza Virus Vaccine Recomb Quad IM, Preserv and ABX Free 18-64 YRS Unknown Completed [facility] Adenovirus, NOS Unknown Completed [facility] Anthrax Vaccine Unknown Completed [facility] Anthrax Vaccine Unknown Completed [facility] Anthrax Vaccine Unknown Completed [facility] Anthrax Vaccine Unknown Completed [facility] Anthrax Vaccine Unknown Completed [facility] Twinrix (hep a/hep b) Unknown Completed [facility] Twinrix (hep a/hep b) Unknown Completed [facility] Twinrix (hep a/hep b) Unknown Completed [facility] Influenza Virus Vaccine Nasal Unknown Completed [facility] Influenza Virus Vaccine Quad Nasal (Flumist) Unknown Completed [facility] Influenza Virus Vaccine Quad Nasal (Flumist) Unknown Completed [facility] Flu Trivalent [facility] Vaccine (3+ yrs) Unknown Completed [facility] Meningococcal Polysaccharide (groups A, C, Y and W-135) conjugate vaccine (MCV4P) Unknown Completed [facility] IPV Unknown Completed [facility] TDAP Unknown Completed [facility] PPD (TB) Unknown Completed [facility] Smallpox Unknown Completed [facility] Varicella (varivax)(chicken pox) Unknown Completed [facility] SARS-COV-2 COVID-19 MODERNA 12+ YRS VACCINE Unknown Completed [facility] SARS-COV-2 COVID-19 MODERNA 12+ YRS VACCINE Unknown Completed [facility] DTAP Unknown Completed [facility] Typhoid Vaccine, Vi Capsular Polysaccharide, IM Unknown Completed [facility] Typhoid Vaccine, Vi Capsular Polysaccharide, IM Unknown Completed [facility] Influenza Virus Vaccine Recomb Quad IM, Preserv and ABX Free 18-64 YRS Unknown Completed [facility] Adenovirus, NOS Unknown Completed [facility] Anthrax Vaccine Unknown Completed [facility] Anthrax Vaccine Unknown Completed [facility] Anthrax Vaccine Unknown Completed [facility] Anthrax Vaccine Unknown Completed [facility] Anthrax Vaccine Unknown Completed [facility] Twinrix (hep a/hep b) Unknown Completed [facility] Twinrix (hep a/hep b) Unknown Completed [facility] Twinrix (hep a/hep b) Unknown Completed [facility] Influenza Virus Vaccine Nasal Unknown Completed [facility] Influenza Virus Vaccine Quad Nasal (Flumist) Unknown Completed [facility] Influenza Virus Vaccine Quad Nasal (Flumist) Unknown Completed [facility] Flu [facility]rivalent [facility]ine (3+ yrs) Unknown Completed [facility] Meningococcal Polysaccharide (groups A, C, Y and W-135) conjugate vaccine (MCV4P) Unknown Completed [facility] IPV Unknown Completed [facility] TDAP Unknown Completed [facility] PPD (TB) Unknown Completed [facility] Smallpox Unknown Completed [facility] Varicella (varivax)(chicken pox) Unknown Completed [facility] SARS-COV-2 COVID-19 MODERNA 12+ YRS VACCINE Unknown Completed [facility] SARS-COV-2 COVID-19 MODERNA 12+ YRS VACCINE Unknown Completed [facility] DTAP Unknown Completed [facility] Typhoid Vaccine, Vi Capsular Polysaccharide, IM Unknown Completed [facility] Typhoid Vaccine, Vi Capsular Polysaccharide, IM Unknown Completed [facility] Influenza Virus Vaccine Recomb Quad IM, Preserv and ABX Free 18-64 YRS Unknown Completed [facility] Adenovirus, NOS Unknown Completed [facility] Anthrax Vaccine Unknown Com[facility] [facility] Anth[facility] Vaccine Unknown [facility] Anthrax Vaccine Unknown Completed [facility] Anthrax Vaccine Unknown Completed [facility] Anthrax Vaccine Unknown Completed [facility] Twinrix (hep a/hep b) Unknown Completed [facility] Twinrix (hep a/hep b) Unknown Completed [facility] Twinrix (hep a/hep b) Unknown Completed [facility] Influenza Virus Vaccine Nasal Unknown Completed [facility] Influenza Virus Vaccine Quad Nasal (Flumist) Unknown Completed [facility] Influenza Virus Vaccine Quad Nasal (Flumist) Unknown Completed [facility]ine (3+ y[facility] Unknown Completed [facility] Meningococcal Polysaccharide (groups A, C, Y and W-135) conjugate vaccine (MCV4P) Unknown Completed [facility] IPV Unknown Completed [facility] TDAP Unknown Completed [facility] PPD (TB) Unknown Completed [facility] Smallpox Unknown Completed [facility] Varicella (varivax)(chicken pox) Unknown Completed [facility] SARS-COV-2 COVID-19 MODERNA 12+ YRS VACCINE Unknown Completed [facility] SARS-COV-2 COVID-19 MODERNA 12+ YRS VACCINE Unknown Completed [facility] DTAP Unknown Completed [facility] Typhoid Vaccine, Vi Capsular Polysaccharide, IM Unknown Completed [facility] Typhoid Vaccine, Vi Capsular Polysaccharide, IM Unknown Completed [facility] Influenza Virus Vaccine Recomb Quad IM, Preserv and ABX Free 18-64 YRS Unknown Completed [facility] Adenovirus, NOS Unknown Completed [facility] Anthrax Vaccine Unknown Completed [facility] Anthrax Vaccine Unknown Completed [facility] Anthrax Vaccine Unknown Completed [facility] Anthrax Vaccine Unknown Completed [facility] Anthrax Vaccine Unknown Completed [facility] Twinrix (hep a/hep b) Unknown Completed [facility] Twinrix (hep a/hep b) Unknown Completed [facility] Twinrix (hep a/hep b) Unknown Completed [facility] Influenza Virus Vaccine Nasal Unknown Completed [facility] Influenza Virus Vaccine Quad Nasal (Flumist) Unknown Completed [facility] Influenza Virus Vaccine Quad Nasal (Flumist) Unknown Completed [facility] Flu Trivalent Unknown Completed [facility] Influenza Virus Vaccine (3+ yrs) Unknown Completed [facility] Meningococcal Polysaccharide (groups A, C, Y and W-135) conjugate vaccine (MCV4P) Unknown Completed [facility] IPV Unknown Completed [facility] TDAP Unknown Completed [facility] PPD (TB) Unknown Completed [facility] Smallpox Unknown Completed [facility] Varicella (varivax)(chicken pox) Unknown Completed [facility] SARS-COV-2 COVID-19 MODERNA 12+ YRS VACCINE Unknown Completed [facility] SARS-COV-2 COVID-19 MODERNA 12+ YRS VACCINE Unknown Completed [facility] DTAP Unknown Completed [facility] Typhoid Vaccine, Vi Capsular Polysaccharide, IM Unknown Completed [facility] Typhoid Vaccine, Vi Capsular Polysaccharide, IM Unknown Completed [facility] Influenza Virus Vaccine Recomb Quad IM, Preserv and ABX Free 18-64 YRS Unknown Completed [facility] Adenovirus, NOS Unknown Completed [facility] Anthrax Vaccine Unknown Completed [facility] Anthrax Vaccine Unknown Completed [facility] Anthrax Vaccine Unknown Completed [facility] Anthrax Vaccine Unknown Completed [facility] Anthrax Vaccine Unknown Completed [facility] Twinrix (hep a/hep b) Unknown Completed [facility] Twinrix (hep a/hep b) Unknown Completed [facility] Twinrix (hep a/hep b) Unknown Completed [facility] Influenza Virus Vaccine Nasal Unknown Completed [facility] Influenza Virus Vaccine Quad Nasal (Flumist) Unknown Completed [facility] Influenza Virus Vaccine Quad Nasal (Flumist) Unknown Completed [facility] Flu Trivalent [facility] Vaccine (3+ yrs) Unknown Completed [facility] Meningococcal Polysaccharide (groups A, C, Y and W-135) conjugate vaccine (MCV4P) Unknown Completed [facility] IPV Unknown Completed [facility] TDAP Unknown Completed [facility] PPD (TB) Unknown Completed [facility] Smallpox Unknown Completed [facility] Varicella (varivax)(chicken pox) Unknown Completed [facility] SARS-COV-2 COVID-19 MODERNA 12+ YRS VACCINE Unknown Completed [facility] SARS-COV-2 COVID-19 MODERNA 12+ YRS VACCINE Unknown Completed [facility] DTAP Unknown Completed [facility] Typhoid Vaccine, Vi Capsular Polysaccharide, IM Unknown Completed [facility] Typhoid Vaccine, Vi Capsular Polysaccharide, IM Unknown Completed [facility] Influenza Virus Vaccine Recomb Quad IM, Preserv and ABX Free 18-64 YRS Unknown Completed [facility] Adenovirus, NOS Unknown [facility] Anthrax Vaccine Unknown Completed [facility] Anthrax Vaccine Unknown Completed [facility] Anthrax Vaccine Unknown Completed [facility] Anthrax Vaccine Unknown Completed [facility] Twinrix (hep a/hep b) Unknown Completed [facility] Twinrix (hep a/hep b) Unknown Completed [facility] Twinrix (hep a/hep b) Unknown Completed [facility] Influenza Virus Vaccine Nasal Unknown Completed [facility] Influenza Virus Vaccine Quad Nasal (Flumist) Unknown Completed [facility] Influenza Virus Vaccine Quad Nasal (Flumist) Unknown Completed [facility] Flu Trivalent Unknown Completed [facility] Influenza Virus Vaccine (3+ yrs) Unknown Completed [facility] Meningococcal Polysaccharide (groups A, C, Y and W-135) conjugate vaccine (MCV4P) Unknown Completed [facility] IPV Unknown Completed [facility] TDAP Unknown Completed [facility] PPD (TB) Unknown Completed [facility] Smallpox Unknown Completed [facility] Varicella (varivax)(chicken pox) Unknown Completed [facility] SARS-COV-2 COVID-19 MODERNA 12+ YRS VACCINE Unknown Completed [facility] SARS-COV-2 COVID-19 MODERNA 12+ YRS VACCINE Unknown Completed [facility] DTAP Unknown Completed [facility] Typhoid Vaccine, Vi Capsular Polysaccharide, IM Unknown Completed [facility] Typhoid Vaccine, Vi Capsular Polysaccharide, IM Unknown Completed [facility] Influenza Virus Vaccine Recomb Quad IM, Preserv and ABX Free 18-64 YRS Unknown Completed [facility] Adenovirus, NOS Unknown Completed [facility] Anthrax Vaccine Unknown Completed [facility] Anthrax Vaccine Unknown Completed [facility] Anthrax Vaccine Unknown Completed [facility] Anthrax Vaccine Unknown Completed [facility] Anthrax Vaccine Unknown Completed [facility] Twinrix (hep a/hep b) Unknown Completed [facility] Twinrix (hep a/hep b) Unknown Completed [facility] Twinrix (hep a/hep b) Unknown Completed [facility] Influenza Virus Vaccine Nasal Unknown Completed [facility] Influenza Virus Vaccine Quad Nasal (Flumist) Unknown Completed [facility] Influenza Virus Vaccine Quad Nasal (Flumist) Unknown Completed [facility] Flu Trivalent [facility] Vaccine (3+ yrs) Unknown Completed [facility] Meningococcal Polysaccharide (groups A, C, Y and W-135) conjugate vaccine (MCV4P) Unknown Completed [facility] IPV Unknown Completed [facility] TDAP Unknown Completed [facility] PPD (TB) Unknown Completed [facility] Smallpox Unknown Completed [facility] Varicella (varivax)(chicken pox) Unknown Completed [facility] SARS-COV-2 COVID-19 MODERNA 12+ YRS VACCINE Unknown Completed [facility] SARS-COV-2 COVID-19 MODERNA 12+ YRS VACCINE Unknown Completed [facility] DTAP Unknown Completed [facility] Typhoid Vaccine, Vi Capsular Polysaccharide, IM Unknown Completed [facility] Typhoid Vaccine, Vi Capsular Polysaccharide, IM Unknown Completed [facility] Influenza Virus Vaccine Recomb Quad IM, Preserv and ABX Free 18-64 YRS Unknown Completed [facility] Adenovirus, NOS Unknown Completed [facility] Anthrax Vaccine Unknown Completed [facility] Anthrax Vaccine Unknown Completed [facility] Anthrax Vaccine Unknown Completed [facility] Anthrax Vaccine Unknown Completed [facility] Anthrax Vaccine Unknown Completed [facility] Twinrix (hep a/hep b) Unknown Completed [facility] Twinrix (hep a/hep b) Unknown Completed [facility] Twinrix (hep a/hep b) Unknown Completed [facility] Influenza Virus Vaccine Nasal Unknown Completed [facility] Influenza Virus Vaccine Quad Nasal (Flumist) Unknown Completed [facility] Influenza Virus Vaccine Quad Nasal (Flumist) Unknown Completed [facility] Flu Trivalent [facility] Vaccine (3+ yrs) Unknown Completed [facility] Meningococcal Polysaccharide (groups A, C, Y and W-135) conjugate vaccine (MCV4P) Unknown Completed [facility] IPV Unknown Completed [facility] TDAP Unknown Completed [facility] PPD (TB) Unknown Completed [facility] Smallpox Unknown Completed [facility] Varicella (varivax)(chicken pox) Unknown Completed [facility] SARS-COV-2 COVID-19 MODERNA 12+ YRS VACCINE Unknown Completed [facility] SARS-COV-2 COVID-19 MODERNA 12+ YRS VACCINE Unknown Completed [facility] DTAP Unknown Completed [facility] Typhoid Vaccine, Vi Capsular Polysaccharide, IM Unknown Completed [facility] Typhoid Vaccine, Vi Capsular Polysaccharide, IM Unknown Completed [facility] Influenza Virus Vaccine Recomb Quad IM, Preserv and ABX Free 18-64 YRS Unknown Completed [facility] Adenovirus, NOS Unknown Completed [facility] Anthrax Vaccine Unknown Completed [facility] Anthrax Vaccine Unknown Completed [facility] Anthrax Vaccine Unknown Completed [facility] Anthrax Vaccine Unknown Completed [facility] Anthrax Vaccine Unknown Completed [facility] Twinrix (hep a/hep b) Unknown Completed [facility] Twinrix (hep a/hep b) Unknown Completed [facility] Twinrix (hep a/hep b) Unknown Completed [facility] Influenza Virus Vaccine Nasal Unknown Completed [facility] Influenza Virus Vaccine Quad Nasal (Flumist) Unknown Completed [facility] Influenza Virus Vaccine Quad Nasal (Flumist) Unknown Completed [facility] Flu Trivalent Unknown Completed [facility] Influenza Virus Vaccine (3+ yrs) Unknown Completed [facility] Meningococcal Polysaccharide (groups A, C, Y and W-135) conjugate vaccine (MCV4P) Unknown Completed [facility] IPV Unknown Completed [facility] TDAP Unknown Completed [facility] PPD (TB) Unknown Completed [facility] Smallpox Unknown Completed [facility] Varicella (varivax)(chicken pox) Unknown Completed [facility] SARS-COV-2 COVID-19 MODERNA 12+ YRS VACCINE Unknown Completed [facility] SARS-COV-2 COVID-19 MODERNA 12+ YRS VACCINE Unknown Completed [facility] DTAP Unknown Completed [facility] Typhoid Vaccine, Vi Capsular Polysaccharide, IM Unknown Completed [facility] Typhoid Vaccine, Vi Capsular Polysaccharide, IM Unknown Completed [facility] Influenza Virus Vaccine Recomb Quad IM, Preserv and ABX Free 18-64 YRS Unknown Completed [facility] Adenovirus, NOS Unknown Completed [facility] Anthrax Vaccine Unknown Completed [facility] Anthrax Vaccine Unknown Completed [facility] Anthrax Vaccine Unknown Completed [facility] Anthrax Vaccine Unknown Completed [facility] Anthrax Vaccine Unknown Completed [facility] Twinrix (hep a/hep b) Unknown Completed [facility] Twinrix (hep a/hep b) Unknown Completed [facility] Twinrix (hep a/hep b) Unknown Completed [facility] Influenza Virus Vaccine Nasal Unknown Completed [facility] Influenza Virus Vaccine Quad Nasal (Flumist) Unknown Completed [facility] Influenza Virus Vaccine Quad Nasal (Flumist) Unknown Completed [facility] Flu Trivalent Unknown [facility] Vaccine (3+ yrs) Unknown Completed [facility] Meningococcal Polysaccharide (groups A, C, Y and W-135) conjugate vaccine (MCV4P) Unknown Completed [facility] IPV Unknown Completed [facility] TDAP Unknown Completed [facility] PPD (TB) Unknown Completed [facility] Smallpox Unknown Completed [facility] Varicella (varivax)(chicken pox) Unknown Completed [facility] SARS-COV-2 COVID-19 MODERNA 12+ YRS VACCINE Unknown Completed [facility] SARS-COV-2 COVID-19 MODERNA 12+ YRS VACCINE Unknown Completed [facility] DTAP Unknown Completed [facility] Typhoid Vaccine, Vi Capsular Polysaccharide, IM Unknown Completed [facility] Typhoid Vaccine, Vi Capsular Polysaccharide, IM Unknown Completed [facility] Influenza Virus Vaccine Recomb Quad IM, Preserv and ABX Free 18-64 YRS Unknown Completed [facility] Adenovirus, NOS Unknown Completed [facility] Anthrax Vaccine Unknown [facility] Com[facility] Twinrix (hep a/hep b) Unknown Completed [facility] Twinrix (hep a/hep b) Unknown Completed [facility] Twinrix (hep a/hep b) Unknown Completed [facility] Influenza Virus Vaccine Nasal Unknown Completed [facility] Influenza Virus Vaccine Quad Nasal (Flumist) Unknown Completed [facility] Influenza Virus Vaccine Quad Nasal (Flumist) Unknown Completed [facility] Flu Trivalent [facility]ine (3+ y[facility]) Unknown Completed [facility] Meningococcal Polysaccharide (groups A, C, Y and W-135) conjugate vaccine (MCV4P) Unknown Completed [facility] IPV Unknown Completed [facility] TDAP Unknown Completed [facility] PPD (TB) Unknown Completed [facility] Smallpox Unknown Completed [facility] Varicella (varivax)(chicken pox) Unknown Completed [facility] SARS-COV-2 COVID-19 MODERNA 12+ YRS VACCINE Unknown Completed [facility] SARS-COV-2 COVID-19 MODERNA 12+ YRS VACCINE Unknown Completed [facility] DTAP Unknown Completed [facility] Typhoid Vaccine, Vi Capsular Polysaccharide, IM Unknown Completed [facility] Typhoid Vaccine, Vi Capsular Polysaccharide, IM Unknown Completed [facility] Influenza Virus Vaccine Recomb Quad IM, Preserv and ABX Free 18-64 YRS Unknown Completed [facility] Adenovirus, NOS Unknown [facility] Com[facility] Anthrax Vaccine Unknown Completed [facility] Twinrix (hep a/hep b) Unknown Completed [facility] Twinrix (hep a/hep b) Unknown Completed [facility] Twinrix (hep a/hep b) Unknown Completed [facility] Influenza Virus Vaccine Nasal Unknown Completed [facility] Influenza Virus Vaccine Quad Nasal (Flumist) Unknown Completed [facility] Influenza Virus Vaccine Quad Nasal (Flumist) Unknown Completed [facility] Flu Trivalent Unknown [facility] Influ[facility] Virus Vaccine (3+ yrs) Unknown Completed [facility] Meningococcal Polysaccharide (groups A, C, Y and W-135) conjugate vaccine (MCV4P) Unknown Completed [facility] IPV Unknown Completed [facility] TDAP Unknown Completed [facility] PPD (TB) Unknown Completed [facility] Smallpox Unknown Completed [facility] Varicella (varivax)(chicken pox) Unknown Completed [facility] SARS-COV-2 COVID-19 MODERNA 12+ YRS VACCINE Unknown Completed [facility] SARS-COV-2 COVID-19 MODERNA 12+ YRS VACCINE Unknown Completed [facility] DTAP Unknown Completed [facility] Typhoid Vaccine, Vi Capsular Polysaccharide, IM Unknown Completed [facility] Typhoid Vaccine, Vi Capsular Polysaccharide, IM Unknown Completed [facility] Influenza Virus Vaccine Recomb Quad IM, Preserv and ABX Free 18-64 YRS Unknown Completed [facility] Adenovirus, NOS Unknown Completed [facility] Anthrax Vaccine Unknown Completed [facility] Anthrax Vaccine Unknown Completed [facility] Anthrax Vaccine Unknown Completed [facility] Anthrax Vaccine Unknown Completed [facility] Anthrax Vaccine Unknown Completed [facility] Twinrix (hep a/hep b) Unknown Completed [facility] Twinrix (hep a/hep b) Unknown Completed [facility] Twinrix (hep a/hep b) Unknown Completed [facility] Influenza Virus Vaccine Nasal Unknown Completed [facility] Influenza Virus Vaccine Quad Nasal (Flumist) Unknown Completed [facility] Influenza Virus Vaccine Quad Nasal (Flumist) Unknown Completed [facility] Flu [facility]rivalent [facility]ine (3+ yrs) Unknown Completed [facility] Meningococcal Polysaccharide (groups A, C, Y and W-135) conjugate vaccine (MCV4P) Unknown Completed [facility] IPV Unknown Completed [facility] TDAP Unknown Completed [facility] PPD (TB) Unknown Completed [facility] Smallpox Unknown Completed [facility] Varicella (varivax)(chicken pox) Unknown Completed [facility] SARS-COV-2 COVID-19 MODERNA 12+ YRS VACCINE Unknown Completed [facility] SARS-COV-2 COVID-19 MODERNA 12+ YRS VACCINE Unknown Completed [facility] DTAP Unknown Completed [facility] Typhoid Vaccine, Vi Capsular Polysaccharide, IM Unknown Completed [facility] Typhoid Vaccine, Vi Capsular Polysaccharide, IM Unknown Completed [facility] Influenza Virus Vaccine Recomb Quad IM, Preserv and ABX Free 18-64 YRS Unknown Completed [facility] Adenovirus, NOS Unknown Completed [facility] Anthrax Vaccine Unknown Completed [facility] Anthrax Vaccine Unknown Completed [facility] Anthrax Vaccine Unknown Completed [facility] Anthrax Vaccine Unknown Completed [facility] Anthrax Vaccine Unknown Completed [facility] Twinrix (hep a/hep b) Unknown Completed [facility] Twinrix (hep a/hep b) Unknown Completed [facility] Twinrix (hep a/hep b) Unknown Completed [facility] Influenza Virus Vaccine Nasal Unknown Completed [facility] Influenza Virus Vaccine Quad Nasal (Flumist) Unknown Completed [facility] Influenza Virus Vaccine Quad Nasal (Flumist) Unknown Completed [facility] Flu [facility]rivalent [facility]ine (3+ yrs) Unknown Completed [facility] Meningococcal Polysaccharide (groups A, C, Y and W-135) conjugate vaccine (MCV4P) Unknown Completed [facility] IPV Unknown Completed [facility] TDAP Unknown Completed [facility] PPD (TB) Unknown Completed [facility] Smallpox Unknown Completed [facility] Varicella (varivax)(chicken pox) Unknown Completed [facility] SARS-COV-2 COVID-19 MODERNA 12+ YRS VACCINE Unknown Completed [facility] SARS-COV-2 COVID-19 MODERNA 12+ YRS VACCINE Unknown Completed [facility] DTAP Unknown Completed [facility] Typhoid Vaccine, Vi Capsular Polysaccharide, IM Unknown Completed [facility] Typhoid Vaccine, Vi Capsular Polysaccharide, IM Unknown Completed [facility] Influenza Virus Vaccine Recomb Quad IM, Preserv and ABX Free 18-64 YRS Unknown Completed [facility] Adenovirus, NOS Unknown Completed [facility] Anthrax Vaccine Unknown Completed [facility] Anthrax Vaccine Unknown Completed [facility] Anthrax Vaccine Unknown Completed [facility] Anthrax Vaccine Unknown Completed [facility] Anthrax Vaccine Unknown Completed [facility] Twinrix (hep a/hep b) Unknown Completed [facility] Twinrix (hep a/hep b) Unknown Completed [facility] Twinrix (hep a/hep b) Unknown Completed [facility] Influenza Virus Vaccine Nasal Unknown Completed [facility] Influenza Virus Vaccine Quad Nasal (Flumist) Unknown Completed [facility] Influenza Virus Vaccine Quad Nasal (Flumist) Unknown Completed [facility] Flu Trivalent Unknown [facility] Influenza Virus Vaccine (3+ yrs) Unknown Completed [facility] Meningococcal Polysaccharide (groups A, C, Y and W-135) conjugate vaccine (MCV4P) Unknown Completed [facility] IPV Unknown Completed [facility] TDAP Unknown Completed [facility] PPD (TB) Unknown Completed [facility] Smallpox Unknown Completed [facility] Varicella (varivax)(chicken pox) Unknown Completed [facility] SARS-COV-2 COVID-19 MODERNA 12+ YRS VACCINE Unknown Completed [facility] SARS-COV-2 COVID-19 MODERNA 12+ YRS VACCINE Unknown Completed [facility] DTAP Unknown Completed [facility] Typhoid Vaccine, Vi Capsular Polysaccharide, IM Unknown Completed [facility] Typhoid Vaccine, Vi Capsular Polysaccharide, IM Unknown Completed [facility] Influenza Virus Vaccine Recomb Quad IM, Preserv and ABX Free 18-64 YRS Unknown Completed [facility] Adenovirus, NOS Unknown Completed [facility] Anthrax Vaccine Unknown Completed [facility] Anthrax Vaccine Unknown Completed [facility] Anthrax Vaccine Unknown Completed [facility] Anthrax Vaccine Unknown Completed [facility] Anthrax Vaccine Unknown Completed [facility] Twinrix (hep a/hep b) Unknown Completed [facility] Twinrix (hep a/hep b) Unknown Completed [facility] Twinrix (hep a/hep b) Unknown Completed [facility] Influenza Virus Vaccine Nasal Unknown Completed [facility] Influenza Virus Vaccine Quad Nasal (Flumist) Unknown Completed [facility] Influenza Virus Vaccine Quad Nasal (Flumist) Unknown Completed [facility] Flu Trivalent Unknown Completed [facility] Influenza Virus Vaccine (3+ yrs) Unknown Completed [facility] Meningococcal Polysaccharide (groups A, C, Y and W-135) conjugate vaccine (MCV4P) Unknown Completed [facility] IPV Unknown Completed [facility] TDAP Unknown Completed [facility] PPD (TB) Unknown Completed [facility] Smallpox Unknown Completed [facility] Varicella (varivax)(chicken pox) Unknown Completed [facility] SARS-COV-2 COVID-19 MODERNA 12+ YRS VACCINE Unknown Completed [facility] SARS-COV-2 COVID-19 MODERNA 12+ YRS VACCINE Unknown Completed [facility] DTAP Unknown Completed [facility] Typhoid Vaccine, Vi Capsular Polysaccharide, IM Unknown Completed [facility] Typhoid Vaccine, Vi Capsular Polysaccharide, IM Unknown Completed [facility] Influenza Virus Vaccine Recomb Quad IM, Preserv and ABX Free 18-64 YRS Unknown Completed [facility] Adenovirus, NOS Unknown Completed [facility] Anthrax Vaccine Unknown Completed [facility] Anthrax Vaccine Unknown Completed [facility] Anthrax Vaccine Unknown Completed [facility] Anthrax Vaccine Unknown Completed [facility] Anthrax Vaccine Unknown Completed [facility] Twinrix (hep a/hep b) Unknown Completed [facility] Twinrix (hep a/hep b) Unknown Completed [facility] Twinrix (hep a/hep b) Unknown Completed [facility] Influenza Virus Vaccine Nasal Unknown Completed [facility] Influenza Virus Vaccine Quad Nasal (Flumist) Unknown Completed [facility] Influenza Virus Vaccine Quad Nasal (Flumist) Unknown Completed [facility] Flu Trivalent Unknown Completed [facility] Influenza Virus Vaccine (3+ yrs) Unknown Completed [facility] Meningococcal Polysaccharide (groups A, C, Y and W-135) conjugate vaccine (MCV4P) Unknown Completed [facility] IPV Unknown Completed [facility] TDAP Unknown Completed [facility] PPD (TB) Unknown Completed [facility] Smallpox Unknown Completed [facility] Varicella (varivax)(chicken pox) Unknown Completed [facility] SARS-COV-2 COVID-19 MODERNA 12+ YRS VACCINE Unknown Completed [facility] SARS-COV-2 COVID-19 MODERNA 12+ YRS VACCINE Unknown Completed [facility] DTAP Unknown Completed [facility] Typhoid Vaccine, Vi Capsular Polysaccharide, IM Unknown Completed [facility] Typhoid Vaccine, Vi Capsular Polysaccharide, IM Unknown Completed [facility] Influenza Virus Vaccine Recomb Quad IM, Preserv and ABX Free 18-64 YRS Unknown Completed [facility] Adenovirus, NOS Unknown [facility] Com[facility] Anthrax Vaccine Unknown Completed [facility] Anthrax Vaccine Unknown Completed [facility] Anthrax Vaccine Unknown Completed [facility] Anthrax Vaccine Unknown Completed [facility] Twinrix (hep a/hep b) Unknown Completed [facility] Twinrix (hep a/hep b) Unknown Completed [facility] Twinrix (hep a/hep b) Unknown Completed [facility] Influenza Virus Vaccine Nasal Unknown Completed [facility] Influenza Virus Vaccine Quad Nasal (Flumist) Unknown Completed [facility] Influenza Virus Vaccine Quad Nasal (Flumist) Unknown Completed [facility] Flu Trivalent Unknown Completed [facility] Influenza Virus Vaccine (3+ yrs) Unknown Completed [facility] Meningococcal Polysaccharide (groups A, C, Y and W-135) conjugate vaccine (MCV4P) Unknown Completed [facility] IPV Unknown Completed [facility] TDAP Unknown Completed [facility] PPD (TB) Unknown Completed [facility] Smallpox Unknown Completed [facility] Varicella (varivax)(chicken pox) Unknown Completed [facility] SARS-COV-2 COVID-19 MODERNA 12+ YRS VACCINE Unknown Completed [facility] SARS-COV-2 COVID-19 MODERNA 12+ YRS VACCINE Unknown Completed [facility] DTAP Unknown Completed [facility] Typhoid Vaccine, Vi Capsular Polysaccharide, IM Unknown Completed [facility] Typhoid Vaccine, Vi Capsular Polysaccharide, IM Unknown Completed [facility] Influenza Virus Vaccine Recomb Quad IM, Preserv and ABX Free 18-64 YRS Unknown Completed [facility] Adenovirus, NOS Unknown Completed [facility] Anthrax Vaccine Unknown Completed [facility] Anthrax Vaccine Unknown Completed [facility] Anthrax Vaccine Unknown Completed [facility] Anthrax Vaccine Unknown Completed [facility] Anthrax Vaccine Unknown Completed [facility] Twinrix (hep a/hep b) Unknown Completed [facility] Twinrix (hep a/hep b) Unknown Completed [facility] Twinrix (hep a/hep b) Unknown Completed [facility] Influenza Virus Vaccine Nasal Unknown Completed [facility] Influenza Virus Vaccine Quad Nasal (Flumist) Unknown Completed [facility] Influenza Virus Vaccine Quad Nasal (Flumist) Unknown Completed [facility] Flu Trivalent Unknown [facility] Vaccine (3+ yrs) Unknown Completed [facility] Meningococcal Polysaccharide (groups A, C, Y and W-135) conjugate vaccine (MCV4P) Unknown Completed [facility] IPV Unknown Completed [facility] TDAP Unknown Completed [facility] PPD (TB) Unknown Completed [facility] Smallpox Unknown Completed [facility] Varicella (varivax)(chicken pox) Unknown Completed [facility] SARS-COV-2 COVID-19 MODERNA 12+ YRS VACCINE Unknown Completed [facility] SARS-COV-2 COVID-19 MODERNA 12+ YRS VACCINE Unknown Completed [facility] DTAP Unknown Completed [facility] Typhoid Vaccine, Vi Capsular Polysaccharide, IM Unknown Completed [facility] Typhoid Vaccine, Vi Capsular Polysaccharide, IM Unknown Completed [facility] Influenza Virus Vaccine Recomb Quad IM, Preserv and ABX Free 18-64 YRS Unknown Completed [facility] Adenovirus, NOS Unknown Completed [facility] Anthrax Vaccine Unknown Completed [facility] Anthrax Vaccine Unknown Completed [facility] Anthrax Vaccine Unknown Completed [facility] Anthrax Vaccine Unknown Completed [facility] Anthrax Vaccine Unknown Completed [facility] Twinrix (hep a/hep b) Unknown Completed [facility] Twinrix (hep a/hep b) Unknown Completed [facility] Twinrix (hep a/hep b) Unknown Completed [facility] Influenza Virus Vaccine Nasal Unknown Completed [facility] Influenza Virus Vaccine Quad Nasal (Flumist) Unknown Completed [facility] Influenza Virus Vaccine Quad Nasal (Flumist) Unknown Completed [facility] Flu Trivalent Unknown Completed [facility] Influenza Virus Vaccine (3+ yrs) Unknown Completed [facility] Meningococcal Polysaccharide (groups A, C, Y and W-135) conjugate vaccine (MCV4P) Unknown Completed [facility] IPV Unknown Completed [facility] TDAP Unknown Completed [facility] PPD (TB) Unknown Completed [facility] Smallpox Unknown Completed [facility] Varicella (varivax)(chicken pox) Unknown Completed [facility] SARS-COV-2 COVID-19 MODERNA 12+ YRS VACCINE Unknown Completed [facility] SARS-COV-2 COVID-19 MODERNA 12+ YRS VACCINE Unknown Completed [facility] DTAP Unknown Completed [facility] Typhoid Vaccine, Vi Capsular Polysaccharide, IM Unknown Completed [facility] Typhoid Vaccine, Vi Capsular Polysaccharide, IM Unknown Completed [facility] Influenza Virus Vaccine Recomb Quad IM, Preserv and ABX Free 18-64 YRS Unknown Completed [facility] Adenovirus, NOS Unknown Completed [facility] Anthrax Vaccine Unknown Completed [facility] Anthrax Vaccine Unknown Completed [facility] Anthrax Vaccine Unknown Completed [facility] Anthrax Vaccine Unknown Completed [facility] Anthrax Vaccine Unknown Completed [facility] Twinrix (hep a/hep b) Unknown Completed [facility] Twinrix (hep a/hep b) Unknown Completed [facility] Twinrix (hep a/hep b) Unknown Completed [facility] Influenza Virus Vaccine Nasal Unknown Completed [facility] Influenza Virus Vaccine Quad Nasal (Flumist) Unknown Completed [facility] Influenza Virus Vaccine Quad Nasal (Flumist) Unknown Completed [facility] Flu Trivalent [facility] Influenza Virus Vaccine (3+ yrs) Unknown Completed [facility] Meningococcal Polysaccharide (groups A, C, Y and W-135) conjugate vaccine (MCV4P) Unknown Completed [facility] IPV Unknown Completed [facility] TDAP Unknown Completed [facility] PPD (TB) Unknown Completed [facility] Smallpox Unknown Completed [facility] Varicella (varivax)(chicken pox) Unknown Completed [facility] SARS-COV-2 COVID-19 MODERNA 12+ YRS VACCINE Unknown Completed [facility] SARS-COV-2 COVID-19 MODERNA 12+ YRS VACCINE Unknown Completed [facility] DTAP Unknown Completed [facility] Typhoid Vaccine, Vi Capsular Polysaccharide, IM Unknown Completed [facility] Typhoid Vaccine, Vi Capsular Polysaccharide, IM Unknown Completed [facility] Influenza Virus Vaccine Recomb Quad IM, Preserv and ABX Free 18-64 YRS Unknown Completed [facility] Adenovirus, NOS Unknown Completed [facility] Anthrax Vaccine Unknown Completed [facility] Anthrax Vaccine Unknown [facility]ine [facility] Com[facility] Anthrax Vaccine Unknown Completed [facility] Anthrax Vaccine Unknown Completed [facility] Twinrix (hep a/hep b) Unknown Completed [facility] Twinrix (hep a/hep b) Unknown Completed [facility] Twinrix (hep a/hep b) Unknown Completed [facility] Influenza Virus Vaccine Nasal Unknown Completed [facility] Influenza Virus Vaccine Quad Nasal (Flumist) Unknown Completed [facility] Influenza Virus Vaccine Quad Nasal (Flumist) Unknown Completed [facility] Flu Trivalent Unknown Completed [facility] Influenza Virus Vaccine (3+ yrs) Unknown Completed [facility] Meningococcal Polysaccharide (groups A, C, Y and W-135) conjugate vaccine (MCV4P) Unknown Completed [facility] IPV Unknown Completed [facility] TDAP Unknown Completed [facility] PPD (TB) Unknown Completed [facility] Smallpox Unknown Completed [facility] Varicella (varivax)(chicken pox) Unknown Completed [facility] SARS-COV-2 COVID-19 MODERNA 12+ YRS VACCINE Unknown Completed [facility] SARS-COV-2 COVID-19 MODERNA 12+ YRS VACCINE Unknown Completed [facility] DTAP Unknown Completed [facility] Typhoid Vaccine, Vi Capsular Polysaccharide, IM Unknown Completed [facility] Typhoid Vaccine, Vi Capsular Polysaccharide, IM Unknown Completed [facility] Influenza Virus Vaccine Recomb Quad IM, Preserv and ABX Free 18-64 YRS Unknown Completed [facility] Adenovirus, NOS Unknown Completed [facility] Anthrax Vaccine Unknown Completed [facility] Anthrax Vaccine Unknown Completed [facility] Anthrax Vaccine Unknown Completed [facility] Anthrax Vaccine Unknown Completed [facility] Anthrax Vaccine Unknown Completed [facility] Twinrix (hep a/hep b) Unknown Completed [facility] Twinrix (hep a/hep b) Unknown Completed [facility] Twinrix (hep a/hep b) Unknown Completed [facility] Influenza Virus Vaccine Nasal Unknown Completed [facility] Influenza Virus Vaccine Quad Nasal (Flumist) Unknown Completed [facility] Influenza Virus Vaccine Quad Nasal (Flumist) Unknown Completed [facility] Flu Trivalent [facility] Influenza Virus Vaccine (3+ yrs) Unknown Completed [facility] Meningococcal Polysaccharide (groups A, C, Y and W-135) conjugate vaccine (MCV4P) Unknown Completed [facility] IPV Unknown Completed [facility] TDAP Unknown Completed [facility] PPD (TB) Unknown Completed [facility] Smallpox Unknown Completed [facility] Varicella (varivax)(chicken pox) Unknown Completed [facility] SARS-COV-2 COVID-19 MODERNA 12+ YRS VACCINE Unknown Completed [facility] SARS-COV-2 COVID-19 MODERNA 12+ YRS VACCINE Unknown Completed [facility] DTAP Unknown Completed [facility] Typhoid Vaccine, Vi Capsular Polysaccharide, IM Unknown Completed [facility] Typhoid Vaccine, Vi Capsular Polysaccharide, IM Unknown Completed [facility] Influenza Virus Vaccine Recomb Quad IM, Preserv and ABX Free 18-64 YRS Unknown Completed [facility] Adenovirus, NOS Unknown Completed [facility] Anthrax Vaccine Unknown Completed [facility] Anthrax Vaccine Unknown Completed [facility] Anthrax Vaccine Unknown Completed [facility] Anthrax Vaccine Unknown Completed [facility] Anthrax Vaccine Unknown Completed [facility] Twinrix (hep a/hep b) Unknown Completed [facility] Twinrix (hep a/hep b) Unknown Completed [facility] Twinrix (hep a/hep b) Unknown Completed [facility] Influenza Virus Vaccine Nasal Unknown Completed [facility] Influenza Virus Vaccine Quad Nasal (Flumist) Unknown Completed [facility] Influenza Virus Vaccine Quad Nasal (Flumist) Unknown Completed [facility] Flu Trivalent Unknown [facility] Influ[facility] Virus Vaccine (3+ yrs) Unknown Completed [facility] Meningococcal Polysaccharide (groups A, C, Y and W-135) conjugate vaccine (MCV4P) Unknown Completed [facility] IPV Unknown Completed [facility] TDAP Unknown Completed [facility] PPD (TB) Unknown Completed [facility] Smallpox Unknown Completed [facility] Varicella (varivax)(chicken pox) Unknown Completed [facility] SARS-COV-2 COVID-19 MODERNA 12+ YRS VACCINE Unknown Completed [facility] SARS-COV-2 COVID-19 MODERNA 12+ YRS VACCINE Unknown Completed [facility] DTAP Unknown Completed [facility] Typhoid Vaccine, Vi Capsular Polysaccharide, IM Unknown Completed [facility] Typhoid Vaccine, Vi Capsular Polysaccharide, IM Unknown Completed [facility] Influenza Virus Vaccine Recomb Quad IM, Preserv and ABX Free 18-64 YRS Unknown Completed [facility] [facility] Adenovirus, NOS Unknown [facility] Anthrax Vaccine Unknown Completed [facility] Anthrax Vaccine Unknown Completed [facility] Anthrax Vaccine Unknown Completed [facility] Anthrax Vaccine Unknown Completed [facility] Twinrix (hep a/hep b) Unknown Completed [facility] Twinrix (hep a/hep b) Unknown Completed [facility] Twinrix (hep a/hep b) Unknown Completed [facility] Influenza Virus Vaccine Nasal Unknown Completed [facility] Influenza Virus Vaccine Quad Nasal (Flumist) Unknown Completed [facility] Influenza Virus Vaccine Quad Nasal (Flumist) Unknown Completed [facility] Flu Trivalent Unknown Completed Univer [facility] Influenza Virus Vaccine (3+ yrs) Unknown Completed [facility] Meningococcal Polysaccharide (groups A, C, Y and W-135) conjugate vaccine (MCV4P) Unknown Completed [facility] IPV Unknown Completed [facility] TDAP Unknown Completed [facility] PPD (TB) Unknown Completed [facility] Smallpox Unknown Completed [facility] Varicella (varivax)(chicken pox) Unknown Completed [facility] SARS-COV-2 COVID-19 MODERNA 12+ YRS VACCINE Unknown Completed [facility] SARS-COV-2 COVID-19 MODERNA 12+ YRS VACCINE Unknown Completed [facility] DTAP Unknown Completed [facility] Typhoid Vaccine, Vi Capsular Polysaccharide, IM Unknown Completed [facility] Typhoid Vaccine, Vi Capsular Polysaccharide, IM Unknown Completed [facility] Influenza Virus Vaccine Recomb Quad IM, Preserv and ABX Free 18-64 YRS Unknown Completed [facility] Adenovirus, NOS Unknown [facility]rax Vaccine Unknown Completed [facility] Anthrax Vaccine Unknown Completed [facility] Anthrax Vaccine Unknown Completed [facility] Anthrax Vaccine Unknown Completed [facility] Anthrax Vaccine Unknown Completed [facility] Twinrix (hep a/hep b) Unknown Completed [facility] Twinrix (hep a/hep b) Unknown Completed [facility] Twinrix (hep a/hep b) Unknown Completed [facility] Influenza Virus Vaccine Nasal Unknown Completed [facility] Influenza Virus Vaccine Quad Nasal (Flumist) Unknown Completed [facility] Influenza Virus Vaccine Quad Nasal (Flumist) Unknown Completed [facility] Influenza, split virus, trivalent, PF (AFLURIA/FLUARIX/FLU LAVAL/FLUZONE) Unknown Completed [facility] Influenza Virus Vaccine (3+ yrs) Unknown Completed [facility] Meningococcal Polysaccharide (groups A, C, Y and W-135) conjugate vaccine (MCV4P) Unknown Completed [facility] IPV Unknown Completed [facility] TDAP Unknown Completed [facility] PPD (TB) Unknown Completed [facility] Smallpox Unknown Completed [facility] Varicella (varivax)(chicken pox) Unknown Completed [facility] SARS-COV-2 COVID-19 MODERNA 12+ YRS VACCINE Unknown Completed [facility] SARS-COV-2 COVID-19 MODERNA 12+ YRS VACCINE Unknown Completed [facility] DTAP Unknown Completed [facility] Typhoid Vaccine, Vi Capsular Polysaccharide, IM Unknown Completed [facility] Typhoid Vaccine, Vi Capsular Polysaccharide, IM Unknown Completed [facility] Influenza Virus Vaccine Recomb Quad IM, Preserv and ABX Free 18-64 YRS Unknown Completed [facility] Adenovirus, NOS Unknown Completed [facility] Anthrax Vaccine Unknown Completed [facility] Anthrax Vaccine Unknown Completed [facility] Anthrax Vaccine Unknown Completed [facility] Anthrax Vaccine Unknown Completed [facility] Anthrax Vaccine Unknown Completed [facility] Twinrix (hep a/hep b) Unknown Completed [facility] Twinrix (hep a/hep b) Unknown Completed [facility] Twinrix (hep a/hep b) Unknown Completed [facility] Influenza Virus Vaccine Nasal Unknown Completed [facility] Influenza Virus Vaccine Quad Nasal (Flumist) Unknown Completed [facility] Influenza Virus Vaccine Quad Nasal (Flumist) Unknown Completed [facility] Influenza, split virus, trivalent, PF (AFLURIA/FLUARIX/FLU LAVAL/FLUZONE) Unknown Completed [facility] Influenza Virus Vaccine (3+ yrs) Unknown Completed [facility] Meningococcal Polysaccharide (groups A, C, Y and W-135) conjugate vaccine (MCV4P) Unknown Completed [facility] IPV Unknown Completed [facility] TDAP Unknown Completed [facility] PPD (TB) Unknown Completed [facility] Smallpox Unknown Completed [facility] Varicella (varivax)(chicken pox) Unknown Completed [facility] SARS-COV-2 COVID-19 MODERNA 12+ YRS VACCINE Unknown Completed [facility] SARS-COV-2 COVID-19 MODERNA 12+ YRS VACCINE Unknown Completed [facility] DTAP Unknown Completed [facility] Typhoid Vaccine, Vi Capsular Polysaccharide, IM Unknown Completed [facility] Typhoid Vaccine, Vi Capsular Polysaccharide, IM Unknown Completed [facility] Influenza Virus Vaccine Recomb Quad IM, Preserv and ABX Free 18-64 YRS Unknown Completed [facility] Adenovirus, NOS Unknown Completed [facility] Anthrax Vaccine Unknown Completed [facility] Anthrax Vaccine Unknown Completed [facility] Anthrax Vaccine Unknown Completed [facility] Anthrax Vaccine Unknown Completed [facility] Anthrax Vaccine Unknown Completed [facility] Twinrix (hep a/hep b) Unknown Completed [facility] Twinrix (hep a/hep b) Unknown Completed [facility] Twinrix (hep a/hep b) Unknown Completed [facility] Influenza Virus Vaccine Nasal Unknown Completed [facility] Influenza Virus Vaccine Quad Nasal (Flumist) Unknown Completed [facility] Influenza Virus Vaccine Quad Nasal (Flumist) Unknown Completed [facility] Influenza, split virus, trivalent, PF (AFLURIA/FLUARIX/FLU LAVAL/FLUZONE) Unknown Completed [facility] Influenza Virus Vaccine (3+ yrs) Unknown Completed [facility] Meningococcal Polysaccharide (groups A, C, Y and W-135) conjugate vaccine (MCV4P) Unknown Completed [facility] IPV Unknown Completed [facility] TDAP Unknown Completed [facility] PPD (TB) Unknown Completed [facility] Smallpox Unknown Completed [facility] Varicella (varivax)(chicken pox) Unknown Completed [facility] Vital Signs Vital Name Observation Time Observation Value Comments S isa Systolic blood pressure 2024-03-12 21:06:00 115 mm[Hg] [facility] Diastolic blood pressure 2024-03-12 21:06:00 78 mm[Hg] [facility] Heart rate 2024-03-12 21:06:00 83 /min Unive [facility] Body height 2024-03-12 21:06:00 172.7 cm [facility] Body weight 2024-03-12 21:06:00 102.286 kg [facility] BMI 2024-03-12 21:06:00 34.29 kg/m2 [facility] Oxygen saturation in Arterial blood by Pulse oximetry 2024-03-12 21:06:00 97 /min [facility] Systolic blood pressure 2024-02-20 21:09:00 121 mm[Hg] [facility] Diastolic blood pressure 2024-02-20 21:09:00 75 mm[Hg] [facility] Heart rate 2024-02-20 21:09:00 75 /min Unive [facility] Respiratory rate 2024-02-20 21:09:00 18 /min [facility] Body height 2024-02-20 21:09:00 172.7 cm [facility] Body weight 2024-02-20 21:09:00 101.152 kg [facility] BMI 2024-02-20 21:09:00 33.91 kg/m2 [facility] Oxygen saturation in Arterial blood by Pulse oximetry 2024-02-20 21:09:00 93 /min [facility] Systolic blood pressure 2024-02-09 14:07:00 127 mm[Hg] [facility] Diastolic blood pressure 2024-02-09 14:07:00 84 mm[Hg] [facility] Heart rate 2024-02-09 14:06:00 55 /min Unive [facility] Body temperature 2024-02-09 14:06:00 36.44 Julieta [facility] Respiratory rate 2024-02-09 14:06:00 18 /min [facility] Body height 2024-02-09 14:06:00 172.7 cm [facility] weight 2024-02-09 14:06:00 101.152 kg Univ [facility] BMI 2024-02-09 14:06:00 33.91 kg/m2 Univ [facility] Oxygen saturation in Arterial blood by Pulse oximetry 2024-02-09 14:06:00 97 /min [facility] Systolic blood pressure 2023-07-04 19:16:00 127 mm[Hg] [facility] Diastolic blood pressure 2023-07-04 19:16:00 76 mm[Hg] [facility] Heart rate 2023-07-04 19:16:00 57 /min Unive [facility] Body temperature 2023-07-04 19:16:00 36.72 Julieta [facility] Respiratory rate 2023-07-04 19:16:00 18 /min [facility] Body height 2023-07-04 19:16:00 175.3 cm Univ [facility] Body weight 2023-07-04 19:16:00 85.73 kg Univ [facility] BMI 2023-07-04 19:16:00 27.91 kg/m2 [facility] Oxygen saturation in Arterial blood by Pulse oximetry 2023-07-04 19:16:00 100 /min [facility] Systolic blood pressure 2023-06-23 14:18:00 121 mm[Hg] [facility] Diastolic blood pressure 2023-06-23 14:18:00 76 mm[Hg] [facility] Heart rate 2023-06-23 14:18:00 63 /min [facility] height 2023-06-23 14:18:00 172.7 cm Univ [facility] Body weight 2023-06-23 14:18:00 86.773 kg Univ [facility] BMI 2023-06-23 14:18:00 29.09 kg/m2 [facility] Oxygen saturation in Arterial blood by Pulse oximetry 2023-06-23 14:18:00 97 /min [facility] Systolic blood pressure 2023-02-15 20:39:00 112 mm[Hg] [facility] Diastolic blood pressure 2023-02-15 20:39:00 75 mm[Hg] [facility] Heart rate 2023-02-15 20:39:00 80 /min Unive [facility] Body height 2023-02-15 20:39:00 172.7 cm [facility] Body weight 2023-02-15 20:39:00 95.482 kg [facility] BMI 2023-02-15 20:39:00 32.01 kg/m2 [facility] Oxygen saturation in Arterial blood by Pulse oximetry 2023-02-15 20:39:00 95 /min [facility] Systolic blood pressure 2022-09-27 20:33:00 119 mm[Hg] [facility] Diastolic blood pressure 2022-09-27 20:33:00 75 mm[Hg] [facility] Heart rate 2022-09-27 20:33:00 61 /min Unive [facility] Body height 2022-09-27 20:33:00 175.3 cm [facility] Body weight 2022-09-27 20:33:00 103.012 kg [facility] BMI 2022-09-27 20:33:00 33.54 kg/m2 [facility] Oxygen saturation in Arterial blood by Pulse oximetry 2022-09-27 20:33:00 98 /min [facility] Systolic blood pressure 2022-04-30 18:31:00 122 mm[Hg] [facility] Diastolic blood pressure 2022-04-30 18:31:00 63 mm[Hg] [facility] Heart rate 2022-04-30 18:31:00 63 /min Unive [facility] Body temperature 2022-04-30 18:31:00 36.67 Julieta [facility] Body height 2022-04-30 18:31:00 175.3 cm [facility] Body weight 2022-04-30 18:31:[address] [facility] [place] [place] [facility] BMI 2022-04-30 18:31:00 31.75 kg/m2 [facility] Oxygen saturation in Arterial blood by Pulse oximetry 2022-04-30 18:31:00 97 /min [facility] Systolic blood pressure 2019-12-24 14:24:00 146 mm[Hg] [facility] Diastolic blood pressure 2019-12-24 14:24:00 79 mm[Hg] [facility] Heart rate 2019-12-24 14:24:00 50 /min [facility] Body height 2019-12-24 14:23:[address] [facility] [place] [facility] Body weight 2019-12-24 14:23:00 97.523 kg Univ [facility] BMI 2019-12-24 14:23:00 32.69 kg/m2 [facility] Systolic blood pressure 2019-09-24 18:19:00 120 mm[Hg] [facility] Diastolic blood pressure 2019-09-24 18:19:00 73 mm[Hg] [facility] Heart rate 2019-09-24 18:19:00 51 /min [facility]ive [facility] Body height 2019-09-24 18:18:00 172.7 cm Univ [facility] Body weight 2019-09-24 18:18:00 95.573 kg Univ [facility] BMI 2019-09-24 18:18:00 32.04 kg/m2 [facility] Oxygen saturation in Arterial blood by Pulse oximetry 2019-09-24 18:18:00 99 /min [facility] Systolic blood pressure 2019-09-06 19:54:00 122 mm[Hg] [facility] Diastolic blood pressure 2019-09-06 19:54:00 78 mm[Hg] [facility] Heart rate 2019-09-06 19:54:00 71 /min [facility] Body height 2019-09-06 19:54:00 172.7 cm [facility] Body weight 2019-09-06 19:54:00 92.534 kg Univ [facility] BMI 2019-09-06 19:54:00 31.02 kg/m2 Univ [facility] Systolic blood pressure 2019-08-21 15:06:00 116 mm[Hg] [facility] Diastolic blood pressure 2019-08-21 15:06:00 79 mm[Hg] [facility] Body height 2019-08-21 15:06:00 172.7 cm [facility] Body weight 2019-08-21 15:06:00 92.987 kg [facility] BMI 2019-08-21 15:06:00 31.17 kg/m2 [facility] Body height 2019-08-29 20:47:00 175.3 cm Univ [facility] Body weight 2019-08-29 20:47:00 92.987 kg Univ [facility] BMI 2019-08-29 20:47:00 30.27 kg/m2 [facility] Systolic blood pressure 2019-08-21 14:04:00 116 mm[Hg] [facility] Diastolic blood pressure 2019-08-21 14:04:00 79 mm[Hg] [facility] Heart rate 2019-08-21 14:04:00 54 /min Unive [facility] Body height 2019-08-21 14:04:00 172.7 cm [facility] Body weight 2019-08-21 14:04:00 92.987 kg [facility] BMI 2019-08-21 14:04:00 31.17 kg/m2 [facility] Oxygen saturation in Arterial blood by Pulse oximetry 2019-08-21 14:04:00 98 /min [facility] Systolic blood pressure 2023-10-21 18:07:00 111 mm[Hg] [facility] Diastolic blood pressure 2023-10-21 18:07:00 68 mm[Hg] [facility] Heart rate 2023-10-21 18:07:00 60 /min Unive [facility] Respiratory rate 2023-10-21 18:07:00 18 /min [facility] Body height 2023-10-21 18:07:00 175.3 cm [facility] Body weight 2023-10-21 18:07:00 87.998 kg [facility] BMI 2023-10-21 18:07:00 28.65 kg/m2 [facility] Systolic blood pressure 2023-09-09 18:52:00 110 mm[Hg] [facility] Diastolic blood pressure 2023-09-09 18:52:00 66 mm[Hg] [facility] Heart rate 2023-09-09 18:52:00 61 /min Unive [facility] Respiratory rate 2023-09-09 18:52:00 20 /min [facility] Body height 2023-09-09 18:52:00 175.3 cm [facility] Body weight 2023-09-09 18:52:00 84.369 kg [facility] BMI 2023-09-09 18:52:00 27.47 kg/m2 [facility] Systolic blood pressure 2023-08-05 18:15:00 101 mm[Hg] [facility] Diastolic blood pressure 2023-08-05 18:15:00 66 mm[Hg] [facility] Heart rate 2023-08-05 18:15:00 64 /min [facility] 2023-08-05 18:15:00 18 /min [facility] Body height 2023-08-05 18:15:00 175.3 cm [facility] Body weight 2023-08-05 18:15:00 84.777 kg [facility] BMI 2023-08-05 18:15:00 27.60 kg/m2 [facility] Body temperature 2023-07-04 19:16:00 36.72 Julieta [facility] Oxygen saturation in Arterial blood by Pulse oximetry 2023-07-04 19:16:00 100 /min [facility] Procedures Procedure Date / Time Performed Performing Clinician Source PS[facility]CH[facility]ATRY CLINIC PATIENT INFORMATION 2023-08-05 06:01:00 Doctor Unassigned, [place] [facility] PS[facility]ATRY CLINIC PATIENT INFORMATION 2023-08-05 06:01:00 Doctor Unassigned, [place] [facility] CONSENT TO TREATMENT WITH PSYCHOACTIVE MEDICATION 2023-08-05 06:01:00 Doctor Unassigned, [place] [facility] AUTHORIZATION FOR RELEASE OF PHI 2023-08-05 06:01:00 Doctor Unassigned, [place] [facility] HCV ANTIBODY 2022-09-27 21:29:00 Carolyne Garcia [facility] HIV 1/2 AG-AB WITH REFLEX 2022-09-27 21:29:00 Carolyne Garcia [facility] PHYSICIAN ORDERS 2021-04-23 05:01:00 Doctor Unas signed, [place] [facility] AUTHORIZATION FOR RELEASE OF PHI 2020-04-01 05:01:00 Doctor Unassigned, [place] [facility] PHYSICIAN CERTIFICATION STATEMENT 2019-12-24 05:01:00 Doctor Unassigned, [place] [facility] XR LUMBAR SPINE FLEXION AND EXTENSION 6+ VW 2019-09-25 14:00:41 Mena Guadarrama [facility] MR LUMBAR SPINE WO CONTRAST 2019-08-29 21:17:59 Jean Pierre Chahal [facility] NOTICE OF PRIVACY PRACTICES 2019-08-21 13:53:13 Doctor Unassigned, [place] [facility] CONSENT/REFUSAL FOR DIAGNOSIS AND TREATMENT 2019-08-21 13:53:02 Doctor Unassigned, [place] [facility] ASSIGNMENT OF BENEFITS 2019-08-21 13:52:51 Docto r Unassigned, [place] [facility] Plan of Care Planned Activity Planned Date Details Comments Source Medication 2024-04-05 00:00:00 topiramate 50 mg tablet [code = 096014] [facility] Encounters Start Date/Time End Date/Time Encounter Type Admission Type Attending Clinicians Care Facility Care Department Encounter ID Source 2024-03-12 16:00:00 2024-03-12 16:23:04 Outpatient R CAROLYNE GARCIA [facility] [id number] [facility] 2024-03-12 16:00:00 2024-03-12 16:23:04 Office Visit Carolyne [facility] [id number] [facility] 2024-03-07 00:00:00 2024-03-09 17:59:48 Samm Garcia [facility] [id number] [id number] [facility] 2024-03-05 00:00:00 2024-03-09 17:52:18 [facility] [id number] [id number] [id number] [id number] [facility] 2024-02-20 16:30:00 2024-02-20 16:30:20 Outpatient R CANDIS KEARNEY [facility] [id number] [facility] 2024-02-20 16:30:00 2024-02-20 16:30:20 Office Visit Candis Kearney [facility] 1..840.114 350.1.13.10 [id number] [id number] [facility] 2024-02-20 09:00:00 2024-02-20 09:00:00 Outpatient R CANDIS KEARNEY [facility] [id number] [facility] 2024-02-16 08:00:00 2024-02-16 08:00:00 [id number] 2024-02-09 00:00:00 2024-02-09 11:03:19 Telephone Alicia [facility] MEDICAL [facility] 1..840.114 350.1.13.10 [id number] [id number] [facility] 2024-02-09 09:00:00 2024-02-09 10:22:42 Outpatient R SHOLA KEARNEYEL [facility] [id number] [facility] 2024-02-09 09:00:00 2024-02-09 10:22:42 Office Visit KearneyShola solizel Rm1, Adc Surg Proc [facility] [id number] 350.1.13.10 [id number] [id number] [facility] 2024-02-03 00:00:00 2024-02-06 13:55:13 [facility] [id number] 350.1.13.10 [id number] [id number] [facility] 2024-02-01 00:00:00 2024-02-01 11:30:25 Samm Garcia Carolyne [facility] [id number] [id number] [id number] [id number] [facility] 2024-01-06 09:15:00 2024-01-06 09:37:28 Outpatient R JUDITH JUÁREZ [facility] [id number] [facility] 2024-01-05 14:00:00 2024-01-05 14:00:00 Outpatient R CAROLYNE GARCIA [facility] [id number] [facility] 2023-10-25 09:39:29 2023-10-25 09:39:29 Outpatient ANDREWS SPARROW [id number] Johnny F Jorge 2023-10-21 13:30:00 2023-10-21 14:44:48 Outpatient R BEN CONNOR [facility] [id number] [facility] 2023-10-21 00:00:2023-10-21 00:00:00 Travel 1.2.840.1 87092.1.1 3.104.2.7 .3.061138 .8 1.2.840.114 350.1.13.10 4.2.7.3.698 084.8 [id number] [facility] 2023-10-19 00:00:00 2023-10-19 00:00:00 Travel 1.2.840.1 79237.1.1 3.104.2.7 .3.923804 .8 1.2.840.114 350.1.13.10 4.2.7.3.698 084.8 [id number] [facility] 2023-09-09 13:30:00 2023-09-09 14:04:43 Outpatient R [facility] [id number] [facility] 2023-09-09 00:00:00 2023-09-09 00:00:00 Travel 1.2.840.1 84363.1.1 3.104.2.7 .3.515420 .8 1.2.840.114 350.1.13.10 4.2.7.3.698 084.8 [id number] [facility] 2023-09-07 00:00:00 2023-09-07 00:00:00 Travel 1.2.840.1 99602.1.1 3.104.2.7 .3.397161 .8 1.2.840.114 350.1.13.10 4.2.7.3.698 084.8 [id number] [facility] 2023-08-22 00:00:00 2023-08-22 00:00:00 Patient Secure Msg Doctor Unassigned, [place] 1.2.840.1 20528.1.1 3.104.2.7 .3.323154 .8 [id number] [facility] 2023-08-18 00:00:00 2023-08-18 00:00:00 Patient Secure Msg Carolyne Garcia 1.2.840.1 89749.1.1 3.104.2.7 .3.946556 .8 [id number] [facility] 2023-08-17 10:30:00 2023-08-17 10:30:00 Outpatient R SANDRA CABA [facility] [id number] [facility] 2023-08-05 12:45:00 2023-08-05 13:52:58 Outpatient R [facility] [id number] [facility] 2023-08-05 00:00:00 2023-08-05 00:00:00 Travel 1.2.840.1 45418.1.1 3.104.2.7 .3.541664 .8 1.2.840.114 350.1.13.10 4.2.7.3.698 084.8 [id number] [facility] 2023-08-05 00:00:00 2023-08-05 00:00:00 Orders Only Doctor Unassigned, [place] 1.2.840.1 52402.1.1 3.104.2.7 .3.649796 .8 [id number] [facility] 2023-08-03 00:00:00 2023-08-03 00:00:00 Travel 1.2.840.1 06277.1.1 3.104.2.7 .3.211569 .8 1.2.840.114 350.1.13.10 4.2.7.3.698 084.8 [id number] [facility] 2023-07-11 00:00:00 2023-07-11 00:00:00 Patient Secure Carolyne Recinos 1.2.840.1 02767.1.1 3.104.2.7 .3.204348 .8 [id number] [facility] 2023-07-04 13:30:00 2023-07-04 13:36:00 Outpatient R CANDIS KEARNEY [facility] [id number] [facility] 2023-07-04 13:30:00 2023-07-04 13:36:00 Office Visit Candis Kearney 1.2.840.1 30815.1.1 3.104.2.7 .3.127752 .8 [id number] [facility] 2023-07-03 00:00:00 2023-07-03 00:00:00 Travel 1.2.840.1 26680.1.1 3.104.2.7 .3.658843 .8 1.2.840.114 350.1.13.10 4.2.7.3.698 084.8 [id number] [facility] 2023-06-27 00:00:00 2023-06-27 00:00:00 Patient Secure Msg Carolyne Garcia 1.2.840.1 87203.1.1 3.104.2.7 .3.892079 .8 [id number] [facility] 2023-06-23 08:00:00 2023-06-23 09:00:05 Outpatient R CAROLYNE GARCIA [facility] [id number] [facility] 2023-06-23 08:00:00 2023-06-23 09:00:05 Office Visit Carolyne Garcia 1.2.840.1 32368.1.1 3.104.2.7 .3.437506 .8 [id number] [facility] 2023-06-23 00:00:00 2023-06-23 00:00:00 Abstract Carolyne Garcia 1.2.840.1 56737.1.1 3.104.2.7 .3.680532 .8 [id number] [facility] 2023-06-23 00:00:00 2023-06-23 00:00:00 Travel 1.2.840.1 43629.1.1 3.104.2.7 .3.822867 .8 1.2.840.114 350.1.13.10 4.2.7.3.698 084.8 [id number] [facility] 2023-06-21 00:00:00 2023-06-21 00:00:00 Travel 1.2.840.1 14778.1.1 3.104.2.7 .3.370201 .8 1.2.840.114 350.1.13.10 4.2.7.3.698 084.8 [id number] [facility] 2023-06-20 00:00:00 2023-06-20 00:00:00 Pre Visit Outreach Werner, October L 1.2.840.1 26904.1.1 3.104.2.7 .3.636854 .8 [id number] [facility] 2023-05-20 00:00:00 2023-05-20 00:00:00 Refill Carolyne Garcia 1.2.840.1 53554.1.1 3.104.2.7 .3.850586 .8 [id number] [facility] 2023-03-01 00:00:00 2023-03-01 00:00:00 Patient Secure Carolyne Gage [facility] 1.2840.114 350.1.13.10 4.2.7.2.686 [id number] 044 [id number] [facility] 2023-02-25 07:30:00 2023-02-25 07:45:00 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 Pob, Adc Lab Main [facility]yne [facility] 1.2840.114 350.1.13.10 4.2.7.2.686 [id number] [facility] 2023-02-25 07:30:00 2023-02-25 07:30:00 Outpatient R CAROLYNE GARCIA [facility] [id number] [facility] 2023-02-17 00:00:00 2023-02-17 00:00:00 Telephone [facility] 1.2.840.114 350.1.13.10 4.2.7.2.686 [id number] 044 [id number] [facility] 2023-02-15 15:40:00 2023-02-15 16:38:01 Outpatient R CAROLYNE GARCIA [facility] [id number] [facility] 2023-02-15 15:40:00 2023-02-15 16:38:01 Office Visit Alicia [facility] ELISEO?[facility] 1.2.840.114 350.1.13.10 4.2.7.2.686 [id number] 044 [id number] [facility] 2023-02-15 16:15:00 2023-02-15 16:30:00 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 Lab, Ang - Naresh Alicia [facility] ELISEO?[facility] 1..840.114 350.1.13.10 4.2.7.2.686 [id number] [facility] 2023-02-03 11:00:00 2023-02-03 11:00:00 Outpatient R CAROLYNE GARCIA [facility] [id number] [facility] 2023-01-26 00:00:00 2023-01-26 00:00:00 Refill Alicia [facility] 1..840.114 350.1.13.10 4.2.7.2.686 [id number] 044 [id number] [facility] 2023-01-26 00:00:00 2023-01-26 00:00:00 Patient Secure Msg Alicia [facility] ELISEO?[facility] 1..840.114 350.1.13.10 4.2.7.2.686 [id number] 044 [id number] [facility] 2023-01-03 00:00:00 2023-01-03 00:00:00 Patient Secure Msg Alicia [facility] ELISEO?[facility] 1.2.840.114 350.1.13.10 4.2.7.2.686 [id number] 044 [id number] [facility] 2022-12-31 00:00:00 2022-12-31 00:00:00 [facility]ill [facility] 1.2.840.114 350.1.13.10 4.2.7.2.686 [id number] 044 [id number] [facility] 2022-09-27 16:30:00 2022-09-27 16:45:00 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 Lab, Drew [facility]ante [facility] 1.2.840.114 350.1.13.10 4.2.7.2.686 [id number] [facility] 2022-09-27 15:20:00 2022-09-27 16:23:11 [id number] 2022-09-27 15:20:00 2022-09-27 16:23:11 [facility] 1.2.840.114 350.1.13.10 4.2.7.2.686 [id number] 044 [id number] [facility] 2022-09-27 15:20:00 2022-09-27 15:20:00 Outpatient R ALICIA [facility] [id number] [facility] 2022-08-05 00:00:00 2022-08-05 00:00:00 Patient Secure Msg Doctor Unassigned, [place] [facility] 1.2.840.114 350.1.13.10 4.2.7.2.686 [id number] [id number] [facility] 2022-08-03 00:00:00 2022-08-03 00:00:00 Refill [facility] 1.2840.114 350.1.13.10 4.2.7.2.686 [id number] [id number] [facility] 2022-07-29 00:00:00 2022-07-29 00:00:00 Refill [facility] 1.2.840.114 350.1.13.10 4.2.7.2.686 [id number] [id number] [facility] 2022-07-22 00:00:00 2022-07-22 00:00:00 Letter (Out) Alicia [facility] ELISEO?[facility] 1.2.840.114 350.1.13.10 4.2.7.2.686 [id number] [id number] [facility] 2022-07-21 00:00:00 2022-07-21 00:00:00 Patient Secure Msg Alicia [facility] ELISEO?[facility] 1.2.840.114 350.1.13.10 4.2.7.2.686 [id number] 044 [id number] [facility] 2022-04-30 13:40:00 2022-04-30 14:20:45 Outpatient R ALICE GARCIAINE [facility] [id number] [facility] 2022-04-30 13:40:00 2022-04-30 14:20:45 Office Visit [facility] 1.2.84114 350.1.13.10 4.2.7.2.686 [id number] 044 [id number] [facility] 2021-07-24 09:30:00 2021-07-24 09:30:00 Outpatient YULIA ODOM [facility] [id number] [facility] 2021-07-19 10:40:00 2021-07-19 10:55:00 Laboratory Only Only, Ang Db Test Rocky [facility] ELISEO?[facility] 1..114 350.1.13.10 4.2.7.2.686 [id number] [facility] 2021-07-19 10:40:00 2021-07-19 10:40:00 Outpatient Nestor ROCKY MARY [facility] [id number] [facility] 2021-05-22 10:40:00 2021-05-22 10:40:00 Outpatient DAVID CORTES [facility] [id number] [facility] 2021-05-13 11:01:36 2021-05-13 11:41:36 Ancillary Visit Libra Morris [facility] 1.84.114 350.1.13.10 4.2.7.2.686 [id number] [facility] 2021-05-11 11:20:00 2021-05-11 11:20:00 Outpatient R [facility] [id number] [facility] 2021-05-11 11:20:00 2021-05-11 11:20:00 Outpatient DAVID CORTES [facility] [id number] [facility] 2021-05-07 09:14:05 2021-05-07 09:54:05 Ancillary Visit Betina Eng Craig [facility] 1.84.114 350.1.13.10 4.2.7.2.686 [id number] [facility] 2021-05-06 09:20:00 2021-05-06 09:20:00 Outpatient DAVID CORTES [facility] [id number] [facility] 2021-05-04 09:16:00 2021-05-04 09:56:00 Ancillary Visit Libra Morris [facility] 1..840.114 350.1.13.10 4.2.7.2.686 [id number] [facility] 2021-04-29 10:00:00 2021-04-29 10:00:00 Outpatient DAVID CORTES [facility] [id number] [facility] 2021-04-27 10:00:00 2021-04-27 10:00:00 Outpatient DAVID CORTES [facility] [id number] [facility] 2021-04-23 09:40:21 2021-04-23 10:40:21 Ancillary Visit Libra Morris [facility] 1.840.114 350.1.13.10 4.2.7.2.686 [id number] [facility] 2021-04-23 00:00:00 2021-04-23 00:00:00 Orders Only Doctor Unassigned, [place] [facility] 1..840.114 350.1.13.10 4.2.7.2.686 [id number] [facility] 2021-04-17 09:15:00 2021-04-17 08:53:00 Inpatient AZEEM Myersey Christiano HCATO RADI [id number] 26 [facility] 2021-02-13 18:20:12 2021-02-13 18:40:12 Laboratory Only Lab, Adc Fam Pob Mary Jaramillo [facility] 1.84.114 350.1.13.10 4.2.7.2.686 [id number] [facility] 2021-02-13 18:20:00 2021-02-13 18:20:00 Outpatient MARY OCONNOR [facility] [id number] [facility] 2021-02-03 18:34:49 2021-02-03 18:54:49 Laboratory Only Lab, Adc Fam Pob I Rocky [facility] One ..114 350.1.13.10 4.2.7.2.686 [id number] [facility] 2021-02-03 18:40:00 2021-02-03 18:40:00 Outpatient Nestor BOWIE MARY [facility] [id number] [facility] 2020-09-16 16:20:00 2020-09-16 16:20:00 Outpatient R NICKY EUBANKS [facility] [id number] [facility] 2020-08-19 16:20:00 2020-08-19 16:20:00 Outpatient NICKY VELIZ [facility] [id number] [facility] 2020-06-02 00:00:00 2020-06-02 00:00:00 Patient Secure Msg [facility]rell [facility] .840.114 350.1.13.10 4.2.7.2.686 [id number] [facility] 2020-06-02 00:00:00 2020-06-02 00:00:00 Patient Secure Msg [facility]rell [facility] .84.114 350.1.13.10 4.2.7.2.686 [id number] 044 [id number] [facility] 2020-04-01 00:00:00 2020-04-01 00:00:00 Orders Only Doctor Unassigned, [place] [facility] 1.2.840.114 350.1.13.10 4.2.7.2.686 [id number] [facility] 2020-03-04 00:00:00 2020-03-04 00:00:00 [facility] 1.2.840.114 350.1.13.10 4.2.7.2.686 [id number] [facility] 2019-12-24 08:50:52 2019-12-24 14:04:53 [facility] 1.2.840.114 350.1.13.10 4.2.7.2.686 [id number] [facility] 2019-12-24 09:30:00 2019-12-24 09:30:00 Outpatient Nestor GUADARRAMA [facility] [id number] [facility] 2019-12-24 00:00:00 2019-12-24 00:00:00 Orders Only Doctor Unassigned, [place] [facility] 1.2.840.114 350.1.13.10 4.2.7.2.686 [id number] [facility] 2019-11-19 09:30:00 2019-11-19 09:30:00 Outpatient MENA COVARRUBIAS [facility] [id number] [facility] 2019-11-19 08:25:39 2019-11-19 08:40:39 Telemedici ne [facility] 1.2.840.114 350.1.13.10 4.2.7.2.686 [id number] [facility] 2019-10-18 14:00:00 2019-10-18 14:00:00 Outpatient Nestor GUADARRAMA [facility] [id number] [facility] 2019-10-18 11:15:00 2019-10-18 11:15:00 [facility] [id number] [facility] 2019-10-18 08:04:06 2019-10-18 08:19:06 Telemedici ne Visit Olvin [facility] Building 1.284.114 350.1.13.10 4.2.7.2.686 [id number] [facility] 2019-09-25 08:39:43 2019-09-25 23:59:00 Outpatient R OLVIN [facility] [id number] [facility] 2019-09-25 08:39:00 2019-09-25 23:59:00 [facility] 1.84.114 350.1.13.10 4.2.7.2.686 [id number] [facility] 2019-09-24 12:43:40 2019-09-24 13:59:46 Office Visit [facility] 1.84.114 350.1.13.10 4.2.7.2.686 [id number] [facility] 2019-09-24 13:30:00 2019-09-24 13:30:00 Outpatient Nest[facility] [id number] 2019-09-13 09:00:00 2019-09-13 09:00:00 [facility] [id number] [facility] 2019-09-06 14:00:00 2019-09-06 14:43:06 [facility] [id number] [facility] 2019-09-06 13:44:58 2019-09-06 14:43:06 Office Visit Olvin [facility] Office Building 1.284.114 350.1.13.10 4.2.7.2.686 [id number] [facility] 2019-08-21 08:49:33 2019-08-31 09:31:03 Office Visit Jean Pierre Chahal [facility] Building 1.114 350.1.13.10 4.2.7.2.686 [id number] [facility] 2019-08-29 14:37:19 2019-08-29 23:59:00 Outpatient R JOSÉ MIGUEL JEAN PIERRE JOSÉ MIGUELJEAN PIERRE Hayes [facility] [id number] [facility] 2019-08-29 14:37:00 2019-08-29 23:59:00 Hospital Encounter Jean Pierre Chahal [facility] 1..114 350.1.13.10 4.2.7.2.686 [id number] [facility] 2019-08-21 07:54:32 2019-08-21 11:48:33 [facility] 1.114 350.1.13.10 4.2.7.2.686 [id number] [facility] 2019-08-21 00:00:00 2019-08-21 00:00:00 Orders Only Doctor Unassigned, [place] [facility] 1.114 350.1.13.10 4.2.7.2.686 [id number] [facility] 2019-08-21 00:00:00 2019-08-21 00:00:00 Letter (Out) [facility] 1.114 350.1.13.10 4.2.7.2.686 [id number] [id number] [facility] 2019-08-21 00:00:00 2019-08-21 00:00:00 Letter (Out) [facility] 1.2.840.114 350.1.13.10 4.2.7.2.686 [id number] [facility] 2019-08-21 00:00:00 2019-08-21 00:00:00 Telephone Jean Pierre [facility]al [facility] 1.2.840.114 350.1.13.10 4.2.7.2.686 [id number] [id number] [facility] Results Test Description Test Time Test Comments Results Result Comments Source - MRI L-SPINE W/O CONT 12:08:00 [facility] : 1990 Sex: M Patient Name: ZACHARY RICKETTS Unit No: [id number] EXAMS: CPT CODE: [id number] MRI L-SPINE W/O CONT 63598 DIAGNOSIS: 1. At L1-2 there is no evidence for disc bulge or herniation, bony canal or foraminal stenosis. 2. At L2-3 there is no evidence for disc bulge or herniation, bony canal or foraminal stenosis. 3. At L3-4 there is no evidence for disc bulge or herniation. No foraminal narrowing there is slight narrowing of the central canal with facet and ligamentum flavum hypertrophic and degenerative change. 4. At L4-5 there is a grade 1 retrolisthesis with 4 mm of central disc herniation with caudal migration impinging on the thecal sac and to a lesser degree the L5 nerve roots. Mild central canal stenosis is seen with facet hypertrophy. Moderate left and mild right foraminal narrowing is present. 5. At L5-S1 there is no evidence for disc bulge or herniation, bony canal or foraminal stenosis. 6. There is a 1.8 cm lesion in the inferior aspect of the right lobe of the liver which is indeterminate. Ultrasound is in further evaluation if clinically indicated. COMMENT: COMPARISON: No prior exams available. Scans were performed in the sagittal and axial planes utilizing T1, T2 and inversion recovery images. Endplate and disc degeneration is seen at L4-5. There is a scoliosis convex left. Disc configurations are as described. Spondylitic changes are as noted. The conus is in the expected location. The description these findings assumes a normal count of 5 lumbar type vertebra. at 1208 Reported and signed by: Raf Benitez MD CC: Christiano Mcdonough MD Technologist: Dayan Peck(R) Transcribed D/ (0098) KaceyL [facility] NAME: ZACHARY RICKETTS [address] [place] [address] PHYS: Christiano Oscar : 1990 AGE: 30 SEX: M [place] [address] LOC: Y.MRI PHONE #: [phone] EXAM DATE: 04/17/2021 STATUS: REG CLI FAX #: [phone] RAD #: D/C DT PAGE 1 Signed Report Patient Name: ZACHARY RICKETTS Unit No: [id number] EXAMS: CPT CODE: [id number] MRI L-SPINE W/O CONT 86675 (Continued) Orig Print D/T: S: 04/17/2021 (1211) [facility] NAME: ZACHARY RICKETTS [address] [place] [address] PHYS: ELIZABETH Gardner Christiano Mcdonough Rai : 1990 AGE: 30 SEX: M [place] [address] LOC: Y.MRI PHONE #: [phone] EXAM DATE: 04/17/2021 STATUS: REG CLI FAX #: [phone] RAD #: D/C DT PAGE 2 Signed Report XR LUMBAR SPINE FLEXION AND EXTENSION 6+ VW 14:03:16 HISTORY: Advanced L4-L5 disc disease. FINDINGS: AP, lateral, 2 oblique and spot views of the lumbar spines areobtained and compared with 11/15/2017 study. 5 lumbar vertebrae with no acutecompression fracture or dislocation. AP view showed upper lumbar dextroscoliosis. Oblique views showed bilateralfacet arthritis at L1-L2, L2-L3, less facet arthritis at T12-L1 and on theright side at L3-L4. Sacroiliac joints appear normal. L4-L5: Disc space is narrowed by approximately 50% with minimaldegenerative changes in the vertebral margins. This appears to be a newfinding since 11/15/2017 study. CONCLUSIONS:1. Upper lumbar dextroscoliosis.2. Multilevel facet arthritis.3. Changes of disc disease at L4-L5. [facility], Radiant Results Inft User - 09/25/2019 9:04 AM CDTHISTORY: Advanced L4-L5 disc disease.FINDINGS: AP, lateral, 2 oblique and spot views of the lumbar spines areobtained and compared with 11/15/2017 study. 5 lumbar vertebrae with no acutecompression fracture or dislocation.AP view showed upper lumbar dextroscoliosis. Oblique views showed bilateralfacet arthritis at L1-L2, L2-L3, less facet arthritis at T12-L1 and on theright side at L3-L4. Sacroiliac joints appear normal.L4-L5: Disc space is narrowed by approximately 50% with minimaldegenerative changes in the vertebral margins. This appears to be a newfinding since 11/15/2017 study.CONCLUSIONS:1. Upper lumbar dextroscoliosis.2. Multilevel facet arthritis.3. Changes of disc disease at L4-L5. [facility] MR LUMBAR SPINE WO CONTRAST 21:28:32 HISTORY: Injured in 2014 while serving in the [employer]. Patient has episodes ofinability to more round. Having low back pain and bilateral leg pain forabout a month. TECHNIQUE: Sagittal T2 FRFSE, T1, STIR and axial T2 FRFSE T1 studies oflumbar spines are obtained. Additional coronal T2 FRFSE study is alsoobtained. FINDINGS: Comparison is made with CT scan of lumbar spines dated 11/05/2018. Exaggerated lumbar lordosis and mild dextroscoliosis noted. No acutecompression fracture or aggressive lesions of the bones detected. Spinalcanal appears to be of adequate size and normal conus/cauda equina arefound at the level of T12/L1. Visualized retroperitoneum is unremarkablefor aortic aneurysm or enlarged lymph nodes or hydronephrosis. T12-L1, L1-L2, L2-L3, L2-L4, L5-S1: Discs maintain normal height andhydration. No bulging of the disc or disc herniation into the spinal canaldetected. Mild facet arthritis is noted at L1-L2, L2-L3, L3-L4 and L5-S1with minimal fluid in the facet joints at L1-L2, left facet joint at L2-L3. L4-L5: Disc degeneration with narrowing of the disc space by [id number]%, reactive degenerative marrow changes in the vertebral endplates,broad-based disc herniation encroaching in the midline and left side of thespinal canal by up to 7 mm causing mild central and left-sided spinal andleft lateral recess stenosis with thecal sac and mild left nerve rootcompression. Encroachment into the right side of the spinal canal/right lateral recessand neural foramen is less without significant nerve root compression. CONCLUSIONS: Broad-based disc herniation in the midline and left side ofthe spinal canal at L4-L5 causing mild central and left lateral recessstenosis with thecal sac and left nerve root compression. 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 Patient has episodes ofinability to more round. Having low back pain and bilateral leg pain forabout a month.TECHNIQUE: Sagittal T2 FRFSE, T1, STIR and axial T2 FRFSE T1 studies oflumbar spines are obtained. Additional coronal T2 FRFSE study is alsoobtained.FINDINGS: Comparison is made with CT scan of lumbar spines dated 11/05/2018.Exaggerated lumbar lordosis and mild dextroscoliosis noted. No acutecompression fracture or aggressive lesions of the bones detected. Spinalcanal appears to be of adequate size and normal conus/cauda equina arefound at the level of T12/L1. Visualized retroperitoneum is unremarkablefor aortic aneurysm or enlarged lymph nodes or hydronephrosis. T12-L1, L1-L2, L2-L3, L2-L4, L5-S1: Discs maintain normal height andhydration. No bulging of the disc or disc herniation into the spinal canaldetected. Mild facet arthritis is noted at L1-L2, L2-L3, L3-L4 and L5-S1with minimal fluid in the facet joints at L1-L2, left facet joint at L2-L3.L4-L5: Disc degeneration with narrowing of the disc space by [id number]%, reactive degenerative marrow changes in the vertebral endplates,broad-based disc herniation encroaching in the midline and left side of thespinal canal by up to 7 mm causing mild central and left-sided spinal andleft lateral recess stenosis with thecal sac and mild left nerve rootcompression.Encroac hment into the right side of the spinal canal/right lateral recessand neural foramen is less without significant nerve root compression.CONCLUSIONS : Broad-based disc herniation in the midline and left side ofthe spinal canal at L4-L5 causing mild central and left lateral recessstenosis with thecal sac and left nerve root compression. [facility] Notes Date/Time Note Provider Source 2024-03-08 14:17:18 Zachary Ricketts is a 33 year old male Requesting refill on topiramate 50 mg tablet sent to [facility] [place], [place] - [address] [facility] [id number] Please contact and advise. [phone] (home) Alexandra [facility] 2024-03-07 09:38:43 Images from the original note were not included. Notes: 02/01/24 Last Refilled: [place], [place] - [address] Recent Visits Date Type Provider Dept 06/23/23 Office Visit Carolyne Garcia MD [facility] 02/15/23 Office Visit Carolyne Garcia MD [facility] 09/27/22 Office Visit Carolyne Garcia MD [facility] Showing recent visits within past 540 days with a meds authorizing provider and meeting all other requirements Future Appointments Date Type Provider Dept 05/07/24 Appointment Carolyne Garcia MD [facility] Showing future appointments within next 150 days with a meds authorizing provider and meeting all other requirements topiramate 50 mg tablet Possible duplicate: Hover to review recent actions on this medication Sig: Take 1 tablet by mouth every morning. Disp: 30 tablet Refills: 0 Start: 03/07/2024 Class: eRX For: Migraine without aura and without status migrainosus, not intractable Last ordered: 1 month ago (02/01/2024) by Carolyne Garcia MD Neurology: Anticonvulsants-Topiramate [id number]/07/2024 05:16 AM Protocol Details status completed Manual Review: Forward refill prescription to provider if patient has had any seizure activity or since last office visit Topiramate in normal range and within 360 days Valid encounter within last 12 months To be filled at: [facility] [place], [place] - [address] Carmen Gilbert MA [facility] 2024-03-06 17:11:35 Please review and sign if appropriate: Last office visit: 06/23/23 Next office visit: 05/07/24 Requested Prescriptions Pending Prescriptions Disp Refills topiramate 50 mg tablet 30 tablet 0 Sig: Take 1 tablet by mouth every morning. Last fill date: 02/01/24 Notes: Migraine without aura and without status migrainosus, not intractable Maria R Grayson LVN [facility] 2024-02-09 11:03:08 Referral placed per provider. [facility] 2024-02-09 08:49:36 Do you approve referral ? [facility] 2024-02-09 08:36:48 Patient is having cyst removal office procedure. Patient needs a new referral from PCP to authorize visits. Please assist with placing general surgery referral for Dr. Kearney. Zoey Cain [facility] 2024-02-06 13:54:43 I think he just needs to be scheduled for cyst excision in clinic. ABDULAZIZ-SURGERY STAFF [facility] 2024-02-06 12:19:[address] Kearney for advice. MARCY JENSEN RN 02/06/2024 12:19 PM Marcy Jensen RN [facility] 2024-02-03 12:31:49 This patient is trying to reschedule the in office cyst removal procedure. Patient last seen in June of 2023- please confirm if we can reschedule the cyst removal procedure (60 min) OR if consultation visit is needed at this time. Thank you. Zoey Johnson [facility] 2024-02-03 12:22:20 Pt states he has completed the referral he needed and would like to schedule his surgery with Dr. Kearney. Please F/u Henri [facility] 2023-09-24 14:58:18 OV required to discuss I typically do not prescribe this medication longer than 3 months Amber Lewis MD [facility] 2023-08-27 10:26:43 Dr Garcia is out, OV required Amber Lewis MD [facility] 2023-08-22 10:35:41 See previous encounter. [facility] 2023-08-22 10:35:10 Please review and refill if appropriate. [facility] 2023-07-15 13:36:37 Addended by: CAROLYNE GARCIA on: 07/15/2023 01:36 PM Modules accepted: Orders [facility] 2023-07-12 13:32:20 Please review and advise [facility] 2023-03-01 16:23:44 Formatting of this n ote might be different from the original. Please review and advise. Shwetha Reyes RN [facility] 2023-02-25 07:30:00 Formatting of this n ote is different from the original. Images from the original note were not included. Venipuncture collection performed by clean technique on the right anticubitus. Total of 1 attempts were made. Slight pressure and a bandage/dressing were applied to the site(s). The patient experienced no complications. The following specimens were processed according to instructions and sent to [facility] laboratories per lab order on today: LT BLUE SST 1 RED LAV PPT DK GREEN (LiHep) DK GREEN (SodH) [place] DK BLUE (K2) DK BLUE (S) ACD Blood Culture NIPT/NTD [facility] 2023-02-17 14:32:28 Formatting of this n ote might be different from the original. Patient notified [facility] 2023-02-17 13:55:52 Formatting of this n ote might be different from the original. Medicine sent! [facility] 2023-02-17 13:41:14 Formatting of this n ote might be different from the original. The patient would like to start another round of phentermine. [facility] 2023-02-17 13:16:32 Addended by: Ricci GARCIA on: 02/17/2023 01:16 PM Modules accepted: Orders [facility] 2023-02-17 13:13:23 Formatting of this n ote might be different from the original. Please let him know we can do another round of phentermine. He can use GoodRx to get it covered for a cheaper cruz. Keep an eye on blood pressure as it can raise it. Best, Dr. Garcia [facility] 2023-02-17 11:44:13 Formatting of this n ote might be different from the original. Timo The Saxenda was not approved by insurance. Per insurance, weight loss medications are plan exclusion and will not be covered. I did call Mr. Ricketts and let him know of this determination. Please let me know if there are any questions or concerns. Thank you Shwetha Yin [facility] 2023-02-15 16:15:00 Formatting of this n ote is different from the original. Images from the original note were not included. Venipuncture collection performed by clean technique on the right anticubitus. Total of 1 attempts were made. Slight pressure and a bandage/dressing were applied to the site(s). The patient experienced no complications. The following specimens were processed according to instructions and sent to [facility] laboratories per lab order on 02/15/2023 : LT BLUE SST 2 RED LAV PPT DK GREEN (LiHep) DK GREEN (SodH) [place] DK BLUE (K2) DK BLUE (S) ACD Blood Culture NIPT/NTD [facility] 2023-02-15 15:40:00 Addended by: Ricci GARCIA on: 02/22/2023 06:56 PM Modules accepted: Orders [facility]
[2024-03-21] MEDS ORDERED: IBUPROFEN 200 MG TAB PO ONE (17:20)
--- NOTE | 2024-03-21 17:55 | RAD REPORT ---
EXAM DESCRIPTION: RAD - C Spine Ap/Lat - 03/21/2024 5:31 pm CLINICAL HISTORY: Neck pain FINDINGS: No fracture or dislocation is seen. Mild spondylosis involves mid and distal cervical spine
--- NOTE | 2024-03-21 17:56 | RAD REPORT ---
EXAM DESCRIPTION: RAD - Lumbar Spine 3 Views - 03/21/2024 5:31 pm CLINICAL HISTORY: Back pain FINDINGS: No fracture or dislocation is seen. Mild scoliosis
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
[2024-03-21 19:09] VITALS: BP 132/76; TEMP 98.5; O2SAT 100
== END 2024-03-21 18:45 | disposition home or self-care (01) ==
LOC: ER 17:05
DX: M54.2 Cervicalgia (principal); M54.50 Low back pain, unspecified; V49.40XA Driver injured in collision with unspecified motor vehicles in traffic accident, initial encounter
CPT/HCPCS: 72040; 72100; 99284